=== PATIENT | female | born 1955 | race Caucasian/White ===

== ENCOUNTER 2024-06-27 19:31 | Inpatient (IN) | payer MEDICARE, SELFPAY ==
[2024-06-27] VITALS (14 sets, daily range): BP systolic 110–136; BP diastolic 43–89; PULSE 68–81; RESP 17–25; TEMP 36.1–36.7; O2SAT 82–96; BMI 24.3; BMI 26.1
--- NOTE | 2024-06-27 20:03 | EKG12_ITS ---
Test Reason : DYSRHYTHMIA Blood Pressure : / mmHG Vent. Rate : 077 BPM Atrial Rate : 077 BPM P-R Int : 134 ms QRS Dur : 094 ms QT Int : 414 ms P-R-T Axes : 051 055 006 degrees QTc Int : 468 ms Normal sinus rhythm Normal ECG Confirmed by Richard Valdes ([id number]), book editor NENA GILLIAM ([id number]) on 06/28/2024 8:20:07 AM Referred By: Confirmed By:Richard Valdes
--- NOTE | 2024-06-27 20:04 | ED.VIS.DYS ---
HPI History of Present Illness Chief Complaint: Shortness of Breath Informant: patient, spouse/S.O. and friend (neighbor) Narrative Narrative: 68-year-old female brought in by EMS because of worsening dyspnea and generalized weakness. This has been going on for at least 2 weeks. Lower extremity edema, lots of anxiety, and dyspnea with walking 3-5 feet to the point where she needs to rest and can only walk that far. She denies any exertional chest discomfort or syncope. Cough that is productive with just clear sputum no blood, maybe a little yellowish in the last day or 2, no fevers or chills that we know of the last time she had her temperature checked by her was yesterday. They states she has not wanted to lie flat in bed since she was discharged home from [facility] about 4 months ago. She was admitted for a month because of double pneumonia that she was diagnosed with after having had a stroke relatively recently that affected the left side, she was discharged home on oxygen and she uses 4-5 L at home all the time. She does not have a doctor. She has been trying to get 1, but the soonest she can get an appointment is 2 weeks from now, and the and neighbor are concerned because she is going downhill. [facility] Medical History (Updated 06/27/24 @ 23:[address] Emory Juarez MD) Hx of bacterial pneumonia Hx of arterial ischemic stroke Home Medications ?Medication ?Instructions ?Recorded ?Last Taken ?Type ascorbic acid (vitamin C) 500 mg 500 mg PO QDAY 06/27/24 Unknown History chewable tablet (Acerola C) aspirin 81 mg capsule 81 mg PO DAILY 06/27/24 Unknown History atorvastatin 80 mg tablet 80 mg PO DAILY 06/27/24 Unknown History cholecalciferol (vitamin D3) 25 1,000 unit PO DAILY 06/27/24 Unknown History mcg (1,000 unit) tablet (Vitamin D3) clopidogrel 75 mg tablet 75 mg PO DAILY 06/27/24 Unknown History ferrous sulfate 325 mg (65 mg 325 mg PO DAILY 06/27/24 Unknown History iron) tablet losartan 25 mg tablet 25 mg PO DAILY 06/27/24 Unknown History magnesium 200 mg tablet 200 mg PO DAILY 06/27/24 Unknown History melatonin 10 mg capsule 10 mg PO QHS 06/27/24 Unknown History Allergy/AdvReac Type Severity Reaction Status Date / Time saccharin (From [place]) Allergy Mild PT UNSURE Verified 06/27/24 19:31 OF REACTION Family History no significant family his Surgical History (Updated 06/27/24 @ 23:14 by Chelsey Mena) Hx of chest tube placement Surgical History no surgical history Social History Smoking Status: Current some day smoker tobacco type: cigarettes ROS ROS ED Constitutional Constitutional ED: Denies chills or fever(s) Eyes Eyes: Denies change in vision or diplopia ENT ENT ED: Denies rhinorrhea or sore throat Cardiovascular Cardiovascular: Reports leg edema; Denies chest pain or palpitations Respiratory/Chest Respiratory/Chest: Reports cough, dyspnea, dyspnea on exertion, sputum and other Details: Patient denies orthopnea saying she does not want to lay down because I do not like the mattress. Gastrointestinal Gastrointestinal: Reports constipation; Denies abdominal pain, diarrhea, nausea or vomiting Genitourinary Genitourinary ED: Denies dysuria or hematuria Musculoskeletal Musculoskeletal: Denies back pain or neck pain Integumentary Denies abscess or rash Neurologic Neurologic: Denies headache(s), paresthesias or weakness Psychiatric Psychiatric: Reports anxiety; Denies suicidal thoughts EXAM Physical Exam Const Vital Signs: 06/27/24 19:31 06/27/24 19:34 06/27/24 19:34 Temperature 97 F L 98.1 F Temperature Source Temporal Oral Pulse Rate 81 78 Respiratory Rate 25 H 20 H Respiratory Effort Respiratory Pattern Blood Pressure 125/43 H 126/47 H Blood Pressure Mean 70 73 Pulse Ox 82 92 94 Oxygen Delivery Method Room Air Nasal Cannula Room Air Oxygen Flow Rate (L/min) 5 5 06/27/24 19:43 06/27/24 20:14 06/27/24 20:28 Temperature Temperature Source Pulse Rate 78 Respiratory Rate 24 H Respiratory Effort Short of Breath Respiratory Pattern Tachypnea Blood Pressure Blood Pressure Mean Pulse Ox 95 Oxygen Delivery Method Nasal Cannula Nasal Cannula Oxygen Flow Rate (L/min) 5 5 06/27/24 20:34 06/27/24 21:00 06/27/24 21:46 Temperature 98.1 F 98.1 F 97.9 F Temperature Source Oral Oral Pulse Rate 76 79 68 Respiratory Rate 17 18 22 H Respiratory Effort Respiratory Pattern Blood Pressure 110/76 110/76 136/47 H Blood Pressure Mean 87 87 76 Pulse Ox 94 96 92 Oxygen Delivery Method Nasal Cannula Nasal Cannula Oxygen Flow Rate (L/min) 5 5 06/27/24 22:00 Temperature 97.6 F L Temperature Source Oral Pulse Rate 69 Respiratory Rate 18 Respiratory Effort Respiratory Pattern Blood Pressure 118/44 L Blood Pressure Mean 68 Pulse Ox 95 Oxygen Delivery Method Nasal Cannula Oxygen Flow Rate (L/min) 5 Positive well nourished and well developed General Appearance ED: well developed and NAD HEENT Reports moist mucous membranes normocephalic and atraumatic Eyes PERRL and EOMs intact bilaterally Neck full ROM and supple Resp Resp Narrative: Mildly tachypneic no respiratory distress able to converse. There are inspiratory rhonchi throughout the left side, they are not present on the right. Few bibasilar high-pitched rhonchi. Cardio regular rate and regular rhythm Cardio Narrative: Soft systolic 2/6 murmur LLSB GI non-tender and non-distended Auscultation: normoactive bowel sounds Palpation: soft Back/Spine no CVA tenderness General Back: other FROM Extremity normal to inspection General Extremety ED: Yes edema; Negative for pulses abnormal or tenderness General Extremity: edema bilateral lower extremity Details: moderate (Symmetric without calf tenderness or signs of cellulitis); Negative for pulses abnormal Neuro oriented x3, CN's II-XII intact bilaterally and no sensory deficits noted Sensorium / Orientation: awake and alert Motor Exam: general weakness Psych mental status grossly normal Skin no rashes or lesions noted and no wounds Sepsis Attestation Sepsis Alert: Yes Sepsis Attestation: Agree w/Sepsis Date exam was performed: 06/27/24 Time exam was performed: 21:00 Possible Source of Sepsis: Pulmonary Sepsis Organ Dysfunction Criteria Present: Lactic Acid > 2 mmol/L Supportive Findings: lethargy, SBP drop of approx 32 Fluid Resuscitation Fluid resuscitation indicated?: Yes Fluid Resuscitation ordered: Lesser volume fluid bolus ordered Amount of fluid ordered: 500 Reason for lesser fluid bolus:: Concern for fluid overload, Heart failure and BP Responded to a lesser volume Sepsis Note Date exam was performed: 06/27/24 Time exam was performed: 22:50 Sepsis Attestation: Sepsis re-evaluation was performed Response to fluids: Fluid responsive hypotension MDM MDM MDM Narrative Medical decision making narrative: Labs show critical hemoglobin of 4.9. She has had no bowel movements lately, family states she has been sitting around a lot, they are worried about a decubitus ulcer which I examined she does not have 1. Maybe a little bit of pressure but no sores or open areas. We did a Hemoccult, it is sent and pending, stool was not suspicious for this I can feel some hard stool at the tip of my finger, but there is yellow specimen without melena or blood. No tenderness or abscess. Her BUN is slightly elevated but I would expect it to be much higher if she had an acute upper GI bleed causing this. 1 view chest x-ray on my interpretation shows significant left-sided patchy infiltrates the right side looks clear. The family suggest that she had a chest tube while she was in [place] because of a parapneumonic effusion, I do not see a large effusion at this time. Antibiotics ordered. Her blood pressure has been trending down 125 systolic initially now in the 90s, prior to this I was hesitant to give her IV fluids even with a lactic acidosis because she has an elevated BNP and is edematous suggesting possibility of acute congestive heart failure. However given this I am giving her a fluid bolus. Discussed all this with the patient in addition to consenting her for a blood transfusion. She consents. Discussed with her and family. Discussed with hospitalist for admission. Requested CT chest/abd/pelvis, which was obtained. I reviewed the images as well as the radiology report which I agree with. It does show concern for metastatic disease in the chest as well as left greater than right pleural effusions, and no retroperitoneal hemorrhage. The Hemoccult returned negative. Lab Data Attestation: I reviewed the patient's lab results. Labs: Laboratory Results - last 24 hr 06/27/24 06/27/24 06/27/24 19:54 20:12 21:05 WBC 6.6 RBC 2.01 L Hgb 4.9 L* Hct 18.0 L MCV 89.6 MCH 24.4 L MCHC 27.2 L RDW Std Deviation 52.3 H RDW Coeff of Jose F 15.9 H Plt Count 183 MPV 11.4 Immature Gran % (Auto) 0.500 Neut % (Auto) 76.7 H Lymph % (Auto) 14.4 L [place] % (Auto) 7.3 Eos % (Auto) 0.6 Baso % (Auto) 0.5 Absolute Neuts (auto) 5.1 Absolute Lymphs (auto) 0.95 Nucleated RBC % 0 Diff Path Review May foll Platelet Estimate ADEQUATE RBC Morphology N CHROM Hypochromasia 1+ Anisocytosis RARE Macrocytosis RARE Ovalocytes RARE Sodium 140 Potassium 4.6 Chloride 102 Carbon Dioxide 27.0 Anion Gap 11 BUN 30 H Creatinine 1.04 H Estim Creat Clear Calc 40.18 Est GFR (MDRD) Af Amer 67 Est GFR (MDRD) Non-Af 56 L BUN/Creatinine Ratio 28.8 H Glucose 215 H Lactic Acid 7.2 H* Calcium 9.0 Troponin I High Sens 106 H B-Natriuretic Peptide 573.7 H Blood Type O POSITIVE Antibody Screen NEGATIVE Crossmatch See Detail Radiography Diagnostic Testing: Clinical Impression(s) from Imaging Studies Chest X-Ray 06/27/24 20:15 IMPRESSION: Diffuse density throughout the left lung with mild sparing of the apex. Findings consistent with atelectasis and/or infiltrate possibly with effusion. Recommend CT scan for better evaluation. Electronically Signed: Uziel Le MD at 21:19 EDT , Chest/Abdomen/Pelvis CT 06/27/24 21:45 IMPRESSION: 1. Exam limited by patient motion and the lack of IV and oral contrast. 2. Extensive abnormalities in the chest especially the left upper lobe where there is consolidation suggestive of atelectasis/infiltrate and likely neoplasm extending into the right mediastinum and hilum. Nodular densities throughout both lungs consistent with metastatic disease. 3. Small right pleural effusion. 4. Small to moderate left pleural effusion. 5. Diffuse calcified vascular disease. Electronically Signed: Uziel Le MD at 22:46 EDT , Rhythm Strip Rhythm Strip: Sinus Rhythm Rate: 80 Ectopy: None EKG Initial EKG: Attestation: I personally reviewed and interpreted this EKG as follows: Interpretation: Sinus Rhythm and No Acute Injury Pattern Management Discussion w/another healthcare provider: Hospitalist Critical Care Time Critical Care Time: Yes Critical care time (excluding procedures): 30-74 minutes (33 min), Including time spent:, Discussing w/Patient &/or Family/Room Worker, Discussing w/Consultants, Arranging Admission or Transfer and Performing Direct Patient Care at Bedside Discharge Plan Dx/Rx/DC Orders Clinical Impression: Hypoxemia, Anemia, Elevated troponin, Pneumonia, Edema, Lung mass, Pleural effusion Disposition Disposition: Acute Care Hospital [facility]
[2024-06-27 20:13] LABS: Absolute Lymphocyte Count 0.95 X10^3/uL (0.83-4.51); Absolute Neutrophil Count 5.1 X10^3/uL (2.0-7.7); Basophil# 0.03 X10^3/uL; Basophil% 0.5 % (0-1); Eosinophil# 0.04 X10^3/uL; Eosinophils% 0.6 % (0-5); Lymphocyte # 0.95 X10^3/ul (0.83-4.51); Lymphocyte % 14.4 % (19-41); Mean Corp Hgb Conc 27.2 g/dL (32-36); Mean Corpuscular Hgb 24.4 pg (27.0-32.0); Mean Corpuscular Volume 89.6 fL (81-99); Mean Platelet Vol. 11.4 fl (6.2-12.0); Monocyte# 0.48 X10^3/uL; Monocyte% 7.3 % (0-10); NRBC Flagged by Analyzer 0 % (0-5); Neutrophil # 5.07 X10^3/uL (2.7-7.7); Neutrophil % 76.7 % (47-70); POSITIVE COUNT YES; Platelet Count 183 K/mm3 (150-450); RBC Distribution Width CV 15.9 % (11.6-14.6); RBC Distribution Width SD 52.3 fl (35.1-43.9); Red Blood Count 2.01 M/mm3 (4.2-5.4); White Blood Count 6.6 K/mm3 (4.4-11.0)
--- NOTE | 2024-06-27 20:15 | RAD_ITS ---
STUDY: X-RAY CHEST REASON FOR EXAM: Female, 68 years old. sob TECHNIQUE: Single AP portable view of the chest. COMPARISON: None. FINDINGS: Normal lung volumes. Diffuse density throughout the left lung with mild sparing of the apex. Findings consistent with atelectasis and/or infiltrate possibly with effusion. Possible mild atelectasis or infiltrate in the right lung base. There is mild cardiac enlargement. Normal mediastinum and jovani. Normal visualized pulmonary arteries. There is atherosclerotic calcification of the aortic arch with tortuosity. Normal visualized thoracic spine. Normal visualized ribs, clavicles, and shoulders. There is no demonstrated abnormality of the visualized soft tissue structures of the upper abdomen. RAD/Chest 1 View (Portable) IMPRESSION: Diffuse density throughout the left lung with mild sparing of the apex. Findings consistent with atelectasis and/or infiltrate possibly with effusion. Recommend CT scan for better evaluation. Electronically Signed: Uziel Le MD at 21:19 EDT ,
[2024-06-27] MEDS: Ipratropium/Albuterol Sulfate 3 ML AMPUL.NEB INHALATION (20:28)
[2024-06-27 20:38] LABS: Anion Gap 11 (5-15); BUN 30 mg/dL (7-18); BUN/Creat Ratio 28.8 RATIO (10-20); Chloride 102 mmol/L (98-107); Creatinine, Serum 1.04 mg/dL (0.55-1.02); EST Glomerular Filtration Rate 56 mL/min (>60); Est Glom Filt Rate - Afr Amer 67 mL/min (>60); Estimated Creatinine Clearance 40.18 ml/min; Glucose 215 mg/dL (74-106); Hemoglobin 4.9 g/dL (12.0-15.0); Potassium 4.6 mmol/L (3.5-5.1); Sodium Level 140 mmol/L (136-145); Troponin-I HS 106 pg/mL (3.0-54.0)
[2024-06-27 20:39] LABS: Differential Indicated SCAN CRITERIA MET
[2024-06-27 20:41] LABS: Anisocytosis RARE; Hypochromasia 1+; Macrocytosis RARE; Ovalocyte RARE; Platelet Estimate ADEQUATE (ADEQ); Red Cell Morphology N CHROM NORMAL (NORM C&C)
[2024-06-27 20:53] LABS: BNP,B-Type NATRIURETIC PEPTIDE 573.7 pg/mL (0-100)
[2024-06-27 20:59] LABS: Lactic Acid 7.2 mmol/L (0.4-1.9)
--- NOTE | 2024-06-27 21:45 | HP.PCM.HOS_ITS ---
HPI - General General Date of Admission: 06/27/24 Date of Service: 06/27/24 Chief Complaint: SOB, Cough and LE Edema. HPI Narrative EILEEN TRAN, is a 68 F with a past medical history of essential hypertension, hyperlipidemia, history of tobacco abuse, history of CVA; with residual Left- sided weakness on BASA and Plavix, RUPAL, OA and history of bilateral pneumonia treated at [facility] (01/2024) with subsequent chronic hypoxic respiratory failure on 4-5L NC continuously patient stating she has been unable to lay flat since that time who presents to [facility] ER complaining of SOB, cough and lower extremity edema. Ms. Tran reports her symptoms began ~2 weeks prior to admission with the gradual-onset of JOHNSON that progressed to SOB at rest with patient now only able to walk ~3-5 feet before she has to rest due to severe exhaustion with 2-3+ bilateral LE edema. She also admits to an associated cough productive of clear sputum with constipation plus severe and escalating anxiety at her rapid downhill course. She does not have a PCP but has an appointment to see one in ~2 weeks. She denies fever, chills, nausea, vomiting, blood in stools, black stools, headache, paresthesias or focal neurologic weakness. In the ER she was noted to have Severe Left-sided Pneumonia complicated by clinical evidence of Moazv-ab-Dggisew Respiratory Insufficiency compounded by Severe Lactic Acidosis of 7.2 mmol/L present on admission with hypotension in the ~90 mmHg range consistent with suspected Sepsis in the setting of Critical Anemia with a hemoglobin of 4.9 g/dL present on admission with an elevated BNP of 573.7 pg/mL consistent with AE CHF with a mildly elevated troponin of 106 pg/mL suspected to be due to Acute Cardiac Strain and she was then admitted to the ICU for ongoing care for a stay that is expected to extend beyond 2 midnights. [facility] Medical History (Updated 06/28/24 @ 01:[address] Carlos Morton DO) Hx of bacterial pneumonia Hx of arterial ischemic stroke Home Medications ?Medication ?Instructions ?Recorded ?Last Taken ?Type ascorbic acid (vitamin C) 500 mg 500 mg PO QDAY 06/27/24 Unknown History chewable tablet (Acerola C) aspirin 81 mg capsule 81 mg PO DAILY 06/27/24 Unknown History atorvastatin 80 mg tablet 80 mg PO DAILY 06/27/24 Unknown History cholecalciferol (vitamin D3) 25 1,000 unit PO DAILY 06/27/24 Unknown History mcg (1,000 unit) tablet (Vitamin D3) clopidogrel 75 mg tablet 75 mg PO DAILY 06/27/24 Unknown History ferrous sulfate 325 mg (65 mg 325 mg PO DAILY 06/27/24 Unknown History iron) tablet losartan 25 mg tablet 25 mg PO DAILY 06/27/24 Unknown History magnesium 200 mg tablet 200 mg PO DAILY 06/27/24 Unknown History melatonin 10 mg capsule 10 mg PO QHS 06/27/24 Unknown History Allergy/AdvReac Type Severity Reaction Status Date / Time saccharin (From Sweeta) Allergy Mild PT UNSURE Verified 06/27/24 19:31 OF REACTION Family History no significant family his Surgical History (Updated 06/27/24 @ 23:14 by Chelsey Mena) Hx of chest tube placement Surgical History no surgical history Social History Smoking Status: Current some day smoker tobacco type: cigarettes ROS ROS Narrative Review of Systems: Constitutional: Patient denies fever or chills. Eyes: Patient denies visual changes or discharge from eyes. ENT: Patient denies runny nose, sore throat or ear pain. CV: Patient admits to bilateral LE edema but she denies chest pain, palpitations or heart racing. Resp: Patient admits to SOB and cough productive of initially clear and now yellowish sputum. GI: Patient admits to constipation but she denies abdominal pain, nausea, vomiting or diarrhea. : Patient denies dysuria, hematuria or urinary hesitancy. MSK: Patient denies neck pain or back pain. Skin: Patient denies rash, abscess or jaundice. Psych: Patient admits to heightened anxiety but she denies suicidal ideation. Neuro: Patient denies headache, paresthesias or focal neurologic deficits. Allergy: Patient denies lip swelling, tongue swelling or urticaria. Hematology: Patient denies easy bleeding or easy bruisability. Endocrinology: Patient denies polyuria, polydipsia or polyphagia. 14 point ROS otherwise negative except for positives noted above in HPI. Vital Signs Vital Signs Vital Signs: 06/27/24 19:31 06/27/24 19:34 06/27/24 19:34 Temperature 97 F L 98.1 F Temperature Source Temporal Oral Pulse Rate 81 78 Respiratory Rate 25 H 20 H Respiratory Effort Respiratory Pattern Blood Pressure 125/43 H 126/47 H Blood Pressure Mean 70 73 Pulse Ox 82 92 94 Oxygen Delivery Method Room Air Nasal Cannula Room Air Oxygen Flow Rate (L/min) 5 5 06/27/24 19:43 06/27/24 20:14 06/27/24 20:28 Temperature Temperature Source Pulse Rate 78 Respiratory Rate 24 H Respiratory Effort Short of Breath Respiratory Pattern Tachypnea Blood Pressure Blood Pressure Mean Pulse Ox 95 Oxygen Delivery Method Nasal Cannula Nasal Cannula Oxygen Flow Rate (L/min) 5 5 06/27/24 20:34 06/27/24 21:00 Temperature 98.1 F 98.1 F Temperature Source Oral Oral Pulse Rate 76 79 Respiratory Rate 17 18 Respiratory Effort Respiratory Pattern Blood Pressure 110/76 110/76 Blood Pressure Mean 87 87 Pulse Ox 94 96 Oxygen Delivery Method Nasal Cannula Nasal Cannula Oxygen Flow Rate (L/min) 5 5 Weight Weight: 124 lb 5.451 oz Body Mass Index (BMI) 24.3 Physical Exam Const alert and oriented x3 Constitutional Narrative: Moderate distress noted with patient chronically ill appearing. General Appearance: cooperative HEENT normocephalic, head/scalp atraumatic, hearing grossly normal bilaterally and moist oral mucous membranes Eyes PERRL and EOMs intact bilaterally Neck no lymphadenopathy and supple Resp Resp Narrative: Coarse inspiratory rhonci over entire Left lung. Auscultation: rhonchi Cardio regular rate and regular rhythm Cardio Narrative: Grade 2/6 STEPHENIE @ LSB. GI normal to inspection, nondistended, normoactive bowel sounds, soft to palpation, non-tender and non-distended Extremity Extremity Narrative: 2-3+ bilateral LE edema. Skin Skin Narrative: Patient has no evidence of rash, abscess or jaundice. Neuro oriented x3, CN's II-XII intact bilaterally, moves all extremities and no focal motor deficits Sensorium / Orientation: awake, alert, oriented to person, oriented to place and oriented to time Speech: speech normal Psych Mood & Affect: anxious Results Medical Records Data Attestation: I reviewed the patient's medical records Lab / Micro Data Attestation: I reviewed the patient's lab results. 06/28/24 04:50 06/28/24 04:50 Labs: Laboratory Results - last 24 hr 06/27/24 19:54: WBC 6.6, RBC 2.01 L, Hgb 4.9 L*, Hct 18.0 L, MCV 89.6, MCH 24.4 L, MCHC 27.2 L, RDW Std Deviation 52.3 H, RDW Coeff of Jose F 15.9 H, Plt Count 183, MPV 11.4, Immature Gran % (Auto) 0.500, Neut % (Auto) 76.7 H, Lymph % (Auto) 14.4 L, Swisher % (Auto) 7.3, Eos % (Auto) 0.6, Baso % (Auto) 0.5, Absolute Neuts (auto) 5.1, Absolute Lymphs (auto) 0.95, Nucleated RBC % 0, Diff Path Review February, Platelet Estimate ADEQUATE, RBC Morphology N CHROM, Hypochromasia 1+, Anisocytosis RARE, Macrocytosis RARE, Ovalocytes RARE, Sodium 140, Potassium 4.6, Chloride 102, Carbon Dioxide 27.0, Anion Gap 11, BUN 30 H, C reatinine 1.04 H, Estim Creat Clear Calc 40.18, Est GFR (MDRD) Af Amer 67, Est GFR (MDRD) Non-Af 56 L, BUN/Creatinine Ratio 28.8 H, Glucose 215 H, Calcium 9.0, Troponin I High Sens 106 H, B-Natriuretic Peptide 573.7 H 06/27/24 20:12: Lactic Acid 7.2 H* 06/27/24 21:05: Crossmatch See Detail Micro: Microbiology 06/27/24 20:18 Mucosa - Nose SARS-CoV-2, Influenza & RSV (PCR) - Final Imaging Radiology Impression Chest X-Ray 06/27/24 20:15 IMPRESSION: Diffuse density throughout the left lung with mild sparing of the apex. Findings consistent with atelectasis and/or infiltrate possibly with effusion. Recommend CT scan for better evaluation. Electronically Signed: Uziel Le MD at 21:19 EDT , - [facility] Imaging Services [address] [place] [address] CT Chest, Abd, Pelvis WO Cont MR#: [id number] Acct: [id number] Name: EILEEN TRAN V Rep #: [id number] : [id number] F 68 From: Uziel Le MD PCP: Care Physician,No Primary Status: REG ER Study: CT Chest, Abd, Pelvis WO Cont Date of Exam: 06/27/24 Exam# [id number] Ordering Dr: Emory Juarez MD EXAM: CT CHEST, ABDOMEN AND PELVIS WITHOUT INTRAVENOUS CONTRAST CLINICAL INDICATION: LETHARGY TECHNIQUE: Helically acquired images were obtained of the chest, abdomen and pelvis without intravenous contrast. This CT exam was performed using one or more of the following dose reduction techniques: automated exposure control, adjustment of the mA and/or kV according to patient size, and/or use of iterative reconstruction technique. RADIATION DOSE: CTDIvol = 9.27 mGy, DLP = 811.02 mGy-cm COMPARISON: No relevant prior studies available. FINDINGS: CHEST: LUNGS AND PLEURAL SPACES: Near complete consolidation of left upper lobe consistent with probable combination of atelectasis/infiltrate and likely neoplasm. Soft tissue density extends to the right hilum with narrowing of the airways. This could be mass or adenopathy. Widespread scattered pulmonary nodules in the posterior right lower lobe, middle lobe, throughout the right lung base, and especially in the lingula and left lower lobe consistent with neoplastic disease. Bronchoscopy and biopsy is recommended. Small right pleural effusion. Small to moderate left pleural effusion. No pneumothorax. HEART: Moderate cardiomegaly. Decreased density of the blood within the cardiac chambers consistent with anemia. Heavily calcified coronary arteries. No pericardial effusion. MEDIASTINUM: Cannot exclude adenopathy on this noncontrast exam. All Esophagus is unremarkable. No hiatal hernia. THYROID: Unremarkable. No thyroid lesions. ABDOMEN: LIVER: Unremarkable. Homogeneous. GALLBLADDER AND BILE DUCTS: Unremarkable. No calcified gallstones. No gallbladder distention or wall edema. No intra- or extrahepatic biliary ductal dilation. PANCREAS: Unremarkable. No focal cystic mass. SPLEEN: Unremarkable. Normal size without focal cystic or solid mass. ADRENALS: Unremarkable. No nodules. KIDNEYS AND URETERS: Severe atrophy of the left kidney. Compensatory hypertrophy of the right kidney. Bilateral renal artery calcifications. No hydronephrosis. STOMACH AND BOWEL: Evaluation of the GI tract is limited by absence of oral contrast. Cannot exclude stomach wall thickening. No dilated loops of bowel or evidence for obstruction. Cannot exclude segmental thickening of the nolasco of the small or large bowel. Cannot exclude enteritis or colitis. Marked diffuse fecal retention. Appendix within normal limits. PELVIS: APPENDIX: No evidence of acute appendicitis. BLADDER: Unremarkable. REPRODUCTIVE: Atrophic uterus. CHEST, ABDOMEN and PELVIS: INTRAPERITONEAL SPACE: Unremarkable. No ascites or other fluid collection. No free air. BONES/JOINTS: Degenerative changes of the skeletal structures. No suspicious lytic or blastic abnormality. SOFT TISSUES: Unremarkable. No discrete abdominal or pelvic wall hernia. VASCULATURE: Heavily calcified thoracic aorta with no aneurysm. Heavily calcified abdominal aorta with no aneurysm. A few calcified peripheral vascular disease CT/CT Chest, Abd, Pelvis WO Cont IMPRESSION: 1. Exam limited by patient motion and the lack of IV and oral contrast. 2. Extensive abnormalities in the chest especially the left upper lobe where there is consolidation suggestive of atelectasis/infiltrate and likely neoplasm extending into the right mediastinum and hilum. Nodular densities throughout both lungs consistent with metastatic disease. 3. Small right pleural effusion. 4. Small to moderate left pleural effusion. 5. Diffuse calcified vascular disease. Electronically Signed: Uziel Le MD at 22:46 EDT , CC: Dr. 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: Signed Assessment & Plan Assessment/Plan (1) Pneumonia: QUALIFIERS: Laterality: left Lung location: unspecified part of lung Pneumonia type: due to unspecified organism Qualified Code(s): J18.9 - Pneumonia, unspecified organism (2) Sepsis: QUALIFIERS: Acute respiratory failure type: unspecified Sepsis acute organ dysfunction status: with acute organ dysfunction Sepsis type: s epsis due to unspecified organism Severe sepsis acute organ dysfunction type: a cute respiratory failure Severe sepsis shock status: without septic shock Q ualified Code(s): A41.9 - Sepsis, unspecified organism; R65.20 - Severe sepsis without septic shock; J96.00 - Acute respiratory failure, unspecified whether with hypoxia or hypercapnia (3) Lactic acidosis: (4) Lung cancer: QUALIFIERS: Laterality: left Lung location: unspecified part of lung Qualified Code(s): C34.92 - Malignant neoplasm of unspecified part of left bronchus or lung (5) Respiratory insufficiency: (6) Edema: QUALIFIERS: Edema type: unspecified Qualified Code(s): R60.9 - Edema, unspecified (7) Anemia: QUALIFIERS: Anemia type: unspecified type Qualified Code(s): D 64.9 - Anemia, unspecified PLAN: Plan 1. Severe Left-sided Pneumonia with Hypotension and Lactic Acidosis of 7.2 mmol/L present on admission due to suspected Sepsis with CT evidence of newly diagnosed Metastatic Lung Cancer - Admit to ICU. Continue broad-spectrum antibiotics and await culture and sensitivity data. Give Tylenol prn [id number] (level 1-5/10) pain or fever. Give Morphine IV prn for severe (level 6-10/10) pain. Check STAT ABG to establish baseline. Check urinary antigens for Legionella and S. pneumonia. Second lactate down to 4.4 mmol/L after initial round of treatment. Give duo-nebs q. 4 hours prn. Patient and her were informed about her malignancy and likely poor prognosis. Finally, we will consult Dr. Gonzalez of the pulmonary service to see this patient on-rounds in the AM for further recommendations regarding possible biopsy with help appreciated in advance. 2. Critical Anemia with a hemoglobin of 4.9 g/dL present on admission in the setting of known chronic RUPAL complicating #1 - Type & Screen blood and then transfuse 2 units or PRBC's. Recheck CBC in AM to ensure improvement. Check iron studies, ferritin, B12 and Folate to evaluate for potential reversible causes of anemia. 3. Elevated BNP of 573.7 pg/mL consistent with AE CHF with a mildly elevated troponin of 106 pg/mL suspected to be due to Acute Cardiac Strain and bilateral LE edema arising from #1 & #2 - Serialize troponin. Check echocardiogram to evaluate LVEF. Patient has suspected high-output state from critical anemia that will hopefully improve after blood transfusion. 4. Bwwzo-zj-Btqgzft Respiratory Insufficiency due to #1 - #3 - Wean supplemental oxygen as tolerated. 5. History of bilateral pneumonia treated at [facility] (01/2024) with subsequent chronic hypoxic respiratory failure on 4-5L NC continuously patient stating she has been unable to lay flat since that time adding to the complexity of #1 - #4 - Noted. We will request records from that hospital as this is her first admission here with no previous records available. 6. History of CVA; with residual Left-sided weakness on BASA and Plavix - Noted. Hold BASA and Plavix until potential source of blood loss has been identified. 7. Essential hypertension - Hold scheduled antihypertensives until blood volume has been replaced with symptomatic hypotension in the ~90 mmHg systolic range noted in the ER. 8. Hyperlipidemia - Resume statin and check Lipid Profile in light of #3. 9. History of tobacco abuse - Tobacco cessation will be strongly encouraged with Nicotine patch offered to control cravings. 10. OA - Stable. Give Tylenol prn. 11. DVT prophylaxis - SCD's only with critical anemia present on admission. Total time: Approximately 75 minutes. Update: Patient continued to complain of severe anxiety even after she was treated with Ativan in the ER so Precedex drip was ordered in the ICU to help control her restlessness and agitation. Sepsis Attestation Sepsis Alert: Yes Sepsis Attestation: Sepsis Ruled Out Date exam was performed: 06/27/24 Time exam was performed: 22:40 Possible Source of Sepsis: Pulmonary Sepsis Organ Dysfunction Criteria Present: SBP < 90 mmHg or MAP < 65 mmHg, SBP decrease of more than 40 mmHg and Lactic Acid > 2 mmol/L Fluid Resuscitation Fluid resuscitation indicated?: Yes Fluid Resuscitation ordered: 30 ml/kg fluid bolus ordered Amount of fluid ordered: 2 Sepsis Note Date exam was performed: 06/28/24 Time exam was performed: 02:40 Sepsis Attestation: Sepsis re-evaluation was performed Response to fluids: Fluid responsive hypotension Charges/Coding Visit Charges Inpatient E&M: 46139 Init Hosp L3
[2024-06-27] MEDS: Piperacil/Tazobactam 4.5 GM in 0.9% Normal Saline (100mL MB+) 100 ML IV (21:48)
[2024-06-27] MEDS: 0.9% Normal Saline (500mL Bag) 500 ML 999 ML IV (22:21)
[2024-06-27 22:52] LABS: Allen Test Positive; Base Excess 6 mmol/L (-2 to +2); Bicarbonate 31.2 mmol/L (22-26); Blood Gas Specimen Type ART; Mode Not entered; O2 Delivery Device Cannula; PO2 56 mmHG (75-100); SITE R Radial; SO2 88 % (95-99); Total Carbon Dioxide 33 mmol/L; pCO2 51.6 mmHg (35-45); pH 7.39 (7.35-7.45)
[2024-06-27] MEDS: Azithromycin 500 MG in Dextrose 5%-Water (250mL Bag) 250 ML 250 MG IV (22:53)
[2024-06-27 23:20] LABS: Ferritin 13 ng/mL (8-252); Iron 9 ug/dL (50-170); Iron Binding Capacity,Total 343 ug/dL (250-450); PERCENT IRON SATURATION 2.6 % (15.0-55.0)
[2024-06-27] MEDS: LORazepam 2 MG/ML Syringe 0.5 MG IV (23:25)
[2024-06-27] MEDS: Albuterol 2.5 MG/3 ML VIAL.NEB. INHALATION (23:25)
[2024-06-28] VITALS (37 sets, daily range): BP systolic 95–146; BP diastolic 38–98; PULSE 57–89; RESP 16–27; TEMP 35.9–36.8; O2SAT 61–100; BMI 26.1
[2024-06-28 00:17] LABS: Reflex Lactate? Y
[2024-06-28] MEDS: Vancomycin HCl 1,500 MG in 0.9% Normal Saline (500mL Bag) 500 ML 250 MG IV (00:43)
[2024-06-28] MEDS: 0.9% Normal Saline (1000mL) 1,000 ML 70 ML IV (00:43)
[2024-06-28 01:01] LABS: Lactic Acid 4.4 mmol/L (0.4-1.9)
--- NOTE | 2024-06-28 01:01 | PCM.RX.CS ---
Consult Antibiotic Management Pharmacy has been consulted to manage selected antibiotic: Vancomycin Type of Intervention Type of Consult: New start Suspected Infection Suspected Infection: Sepsis and Pneumonia Labs Labs: Sodium 140 mmol/L (136-145) 06/27/24 19:54 Potassium 4.6 mmol/L (3.5-5.1) 06/27/24 19:54 Chloride 102 mmol/L (98-107) 06/27/24 19:54 Carbon Dioxide 27.0 mmol/L (21.0-32.0) 06/27/24 19:54 Anion Gap 11 (5-15) 06/27/24 19:54 BUN 30 mg/dL (7-18) H 06/27/24 19:54 Creatinine 1.04 mg/dL (0.55-1.02) H 06/27/24 19:54 Est GFR (MDRD) Af Amer 67 mL/min (>60) 06/27/24 19:54 Est GFR (MDRD) Non-Af 56 mL/min (>60) L 06/27/24 19:54 BUN/Creatinine Ratio 28.8 RATIO (10-20) H 06/27/24 19:54 Glucose 215 mg/dL (74-106) H 06/27/24 19:54 Microbiology Microbiology: Microbiology 06/27/24 21:50 Stool Stool Occult Blood (EMNDEZ) - Final 06/27/24 20:18 Mucosa - Nose SARS-CoV-2, Influenza & RSV (PCR) - Final Dosing Weight Weight used for dosin.4 kg Estimated Creatinine Clearance Estimated Creatinine Clearance: 40 Goal Trough Goal Trough: 15-20 mcg/mL Pharmacy Plan for Drug Dosing Pharmacy Plan for Drug Dosing: Pharmacy Service will continue to monitor and adjust dosing as required. Follow-Up Labs Follow-Up Labs: Trough: Vancomycin Date/Time Labs Ordered Labs to be done on [date and time ordered]: 06/29/24 @1200
[2024-06-28] MEDS: Ipratropium/Albuterol Sulfate 3 ML AMPUL.NEB INHALATION ×5 (02:17→18:46)
[2024-06-28 02:18] LABS: Troponin-I HS 118 pg/mL (3.0-54.0)
[2024-06-28] MEDS: dexMEDEtomidine 400 MCG in 0.9% Normal Saline (100mL Bag) 96 ML 7.6 MCG CONT INF (02:19)
[2024-06-28 02:22] LABS: Vitamin B12 443 pg/mL (211-911)
[2024-06-28 02:56] LABS: D-Dimer Quantitative (DVT/PE) 1.84 FEU/ug/m (0.27-0.49)
[2024-06-28] MEDS: 0.9% Saline Lock 10 ML Syringe IV ×2 (03:32→13:25)
[2024-06-28 03:49] LABS: Reflex Lactate? Y
[2024-06-28 04:25] LABS: Troponin-I HS 112 pg/mL (3.0-54.0)
[2024-06-28 05:11] LABS: Absolute Lymphocyte Count 0.48 X10^3/uL (0.83-4.51); Basophil# 0.01 X10^3/uL; Basophil% 0.2 % (0-1); Hematocrit 19.7 % (37-47); Lymphocyte # 0.48 X10^3/ul (0.83-4.51); Lymphocyte % 8.3 % (19-41); Mean Corp Hgb Conc 28.9 g/dL (32-36); Mean Corpuscular Hgb 25.4 pg (27.0-32.0); Mean Corpuscular Volume 87.9 fL (81-99); Mean Platelet Vol. 12.1 fl (6.2-12.0); Monocyte# 0.31 X10^3/uL; Monocyte% 5.4 % (0-10); NRBC Flagged by Analyzer 0 % (0-5); Neutrophil # 4.96 X10^3/uL (2.7-7.7); Neutrophil % 85.6 % (47-70); POSITIVE COUNT YES; POSITIVE DIFFERENTIAL YES; Platelet Count 145 K/mm3 (150-450); RBC Distribution Width CV 15.7 % (11.6-14.6); RBC Distribution Width SD 50.5 fl (35.1-43.9); Red Blood Count 2.24 M/mm3 (4.2-5.4); White Blood Count 5.8 K/mm3 (4.4-11.0)
[2024-06-28 05:22] LABS: Hemoglobin 5.7 g/dL (12.0-15.0)
[2024-06-28 05:23] LABS: Differential Indicated SCAN CRITERIA MET
[2024-06-28 05:48] LABS: ALB/GLOB Ratio 1.1 RATIO (0.9-2.4); AST(SGOT) 22 U/L (15-37); Alanine Aminotransfer ALT/SGPT 10 U/L (13-56); Albumin, Serum 2.9 g/dL (3.2-5.0); Alkaline Phosphatase 45 U/L (45-117); Anion Gap 7 (5-15); BUN 32 mg/dL (7-18); BUN/Creat Ratio 33.6 RATIO (10-20); Calcium,Total 8.2 mg/dL (8.5-10.1); Chloride 105 mmol/L (98-107); Creatinine, Serum 0.95 mg/dL (0.55-1.02); EST Glomerular Filtration Rate 62 mL/min (>60); Est Glom Filt Rate - Afr Amer 75 mL/min (>60); Estimated Creatinine Clearance 45.47 ml/min; Globulin 2.6 g/dL (2.2-4.2); Glucose 162 mg/dL (74-106); Phosphorus 4.2 mg/dL (2.5-4.9); Potassium 4.2 mmol/L (3.5-5.1); Protein, Total 5.5 g/dL (6.4-8.2); Sodium Level 141 mmol/L (136-145)
--- NOTE | 2024-06-28 05:55 | RAD_ITS ---
INDICATION: Left PNA. EXAMINATION/TECHNIQUE: X-RAY - XR Chest 1 View COMPARISON: June 27, 2024. FINDINGS: LINES/DEVICES: None. LUNGS: Mild unchanged left lung volume loss. Persistent large consolidation in the left lateral upper lung and left lower lung. Mild hyperexpansion of the right lung. Small left effusion. No pneumothorax. MEDIASTINUM AND CARDIOVASCULAR STRUCTURES: Cardiac silhouette not enlarged. BONES AND SOFT TISSUES: Unremarkable. RAD/Chest 1 View (Portable) IMPRESSION: Mixed atelectasis and consolidative pneumonia in the left lung with small effusion. CT follow-up recommended after treatment to exclude obstructing hilar lesion.. Electronically Signed: Salvatore Almeida MD at 6:33 EDT ,
[2024-06-28 05:57] LABS: Lactic Acid 2.5 mmol/L (0.4-1.9)
[2024-06-28 06:05] LABS: BNP,B-Type NATRIURETIC PEPTIDE 823.5 pg/mL (0-100)
[2024-06-28] MEDS: Piperacil/Tazobactam 3.375 GM in 0.9% Normal Saline (50mL MB+) 50 ML IV ×3 (06:15→21:42)
--- NOTE | 2024-06-28 06:54 | VDLE_ITS ---
Reason For Study: Elevated D Dimer RIGHT LEFT GSV is normal. GSV is normal. CFV is compressible, spontaneous, competent CFV is compressible, spontaneous, competent, and demonstrates pulsatile venous flow. and demonstrates pulsatile venous flow. FV is compressible, spontaneous, competent FV is compressible, spontaneous, competent and demonstrates pulsatile venous flow. and demonstrates pulsatile venous flow. POP V is compressible, spontaneous, competent POP V is compressible, spontaneous, and demonstrates pulsatile venous flow. competent and demonstrates pulsatile venous T/P Trunk is compressible. flow. PTV is compressible. T/P Trunk is compressible. RT PerV is compressible. PTV is compressible. Acute deep vein thrombosis is noted in the LT PerV is compressible. Gastrocnemius V. It is dilated and NONCOMPRESSIBLE. Procedure This is a venous duplex using B-mode, color flow and spectral Doppler. Exam performed in department. The study was technically difficult. A preliminary report was called and/or faxed to [facility] sap data architect. VL/Venous Duplex US - Christian Extrem Interpretation Summary Acute deep vein thrombosis is noted in the right gastrocnemius vein. Deep veins of the left lower extremity are patent and compressible segmentally. There is no evidence of left lower extremity deep vein thrombosis. Ordering Physician: Carlos Morton Referring Physician: N/A Performed By: Godwin Strong RVT
--- NOTE | 2024-06-28 06:54 | CT_ITS ---
STUDY: CTA CHEST REASON FOR EXAM: Female, 68 years old. Elevated d-dimer with Lung CA. RADIATION DOSAGE (If Supplied By Facility): CTDIvol = ( 13.66 ) mGy, DLP = ( 434.29 ) mGycm TECHNIQUE: The examination was performed with the intravenous administration of IV 75mL [id number]-[id number]. Post-processing of the angiographic images was performed, with multiplanar reformation and 3D reconstruction. Individualized dose optimization techniques were used for this CT. COMPARISON: Comparison is made with prior study dated June 27, 2024. FINDINGS: Normal enhancement of the main pulmonary artery and right and left pulmonary arteries. Normal enhancement of the bilateral peripheral pulmonary arteries. There is no demonstrated pulmonary embolism. There is atherosclerotic calcification of the aortic arch with tortuosity. There is no demonstrated aortic dissection. There are calcifications of the coronary arteries. Cardiomegaly. Normal mediastinum. Normal hilar regions. Normal visualized trachea and bronchi. Bilateral pleural effusions left much greater than right. There is collapse of the left upper lobe with mass in the region of the left hilum suggestive of postobstructive pneumonitis. Patchy infiltrates and/or irregular nodular densities are seen in the left lower lobe. Pulmonary nodules are seen in the right lung as well. Normal chest wall structures. There are degenerative changes of thoracic spine. Left renal atrophy. CT/CTA Chest W/WO Contrast IMPRESSION: Bilateral pleural effusions left greater than right with collapse of the left upper lobe. Soft tissue mass in the perihilar region on the left side. Bilateral pulmonary nodules. Patchy irregular nodular densities in the left lower lobe versus partial infiltrations. No evidence of pulmonary embolism. Electronically Signed: Eron Abbasi MD at 12:49 EDT ,
--- NOTE | 2024-06-28 07:02 | EX.PCM.CONCC ---
Assessment & Plan Assessment/Plan (1) Sepsis: QUALIFIERS: Sepsis type: sepsis due to unspecified organism Sepsis acute organ dysfunction status: with acute organ dysfunction Severe sepsis acute organ dysfunction type: acute respiratory failure Acute respiratory failure type: unspecified Severe sepsis shock status: without septic shock Qualified Code(s): A41.9 - Sepsis, unspecified organism; R65.20 - Severe sepsis without septic shock; J96.00 - Acute respiratory failure, unspecified whether with hypoxia or hypercapnia (2) Anemia: QUALIFIERS: Anemia type: unspecified type Qualified Code(s): D64.9 - Anemia, unspecified (3) Elevated troponin: PLAN: Plan RECOMMENDATIONS: 1. Supplemental oxygen to maintain saturations at or above 90%. 2. Advance to BiPAP therapy, if needed. 3. Stop continuous IV fluids and administer Lasix. 4. Obtain echocardiogram. 5. Transfuse blood products as ordered. Check H&H posttransfusion. 6. Gastroenterology consultation is pending. 7. Continue empiric antimicrobials. 8. Continue bronchodilator therapy. 9. Start PPI therapy. IMPRESSIONS: 1. Acute on chronic hypoxemic respiratory failure The patient has a presumptive history of COPD in the setting of extensive tobacco abuse history, but has never been evaluated by a industrial gas servicer helper or had PFTs completed. The patient has radiographic evidence of possible postobstructive pneumonia with concern for underlying malignancy with mediastinal infiltration leading to airway narrowing. This will ultimately require additional outpatient workup once all of her acute issues are addressed. Ultimately, the patient will require bronchoscopy/EBUS, which again, can be coordinated on an outpatient basis. For now, I would plan to continue the patient on empiric antimicrobials along with bronchodilators as ordered. I have stopped her continuous IV fluids. She has an elevated troponin and BNP along with heavily calcified coronary vessels noted on CT imaging. Therefore, will obtain echocardiogram. IV Lasix has already been administered. It should be noted that although there is documentation that the patient has a history of lung cancer, she has never been formally diagnosed with any type of malignancy. She was previously told that she had lung nodules, but these lesions have never been biopsied. 2. Sepsis The patient presented with sepsis due to probable postobstructive pneumonia with acute sepsis related organ dysfunction as evidenced by lactic acidemia. The patient has been initiated on appropriate antimicrobial therapy. I would avoid additional IV fluids at this time given the patient's tenuous respiratory status. 3. Anemia The patient presented to the hospital with a hemoglobin of 4.9 g/dL. We do not have any prior laboratory values in our system for comparison. Therefore, the chronicity of this finding is not clear. Nevertheless, the patient is currently receiving transfusion of blood products. Recommend continuing as ordered, with plans to check H&H posttransfusion. Gastroenterology consultation is pending. The patient has been initiated on PPI therapy. 4. Troponin elevation Likely secondary to demand ischemia in the setting of the above. However, given the findings noted on CT imaging with heavily calcified coronary vessels along with elevated BNP and troponin, will obtain echocardiogram. 5. History of CVA/history of tobacco dependency in remission/generalized anxiety disorder Complicates care, management, recovery and prognosis. Given the patient's significant anxiety and current n.p.o. status, will plan to continue Precedex for now. Ultimately, she will need to be started on a long-acting anxiolytic once she is able to tolerate p.o. intake. CODE status: Discussed CODE status at length including difference between FULL code, DNR-CCA and DNR-CC status. Following discussions about the differences in these status, patient requested FULL CODE STATUS. Advanced Care Planning Face to Face Time: 19 minutes This note was generated with [employer] dictation software. It may contain incorrect words, spelling, and punctuation that were not noted in checking the note before signing. HPI Consult Data Date of Consult: 06/28/24 HPI Narrative Reason for Consultation: Sepsis HPI Narrative: The patient is a 68-year-old female, with a history as outlined below, who presented to the emergency department on June 27 with generalized weakness and shortness of breath. The patient is a relatively poor historian, but indicated that she was admitted to [facility] in December/January with respiratory failure related to pneumonia. She was also told at that time that she had pulmonary nodules that were concerning. According to the patient, she was discharged home on 6 L/min of oxygen. She has an extensive tobacco abuse history, but stated that she quit smoking at the time of her hospitalization in December. She does not currently have a primary care doctor, nor has she ever been evaluated by a industrial gas servicer helper. She does report a prior history of CVA, hypertension and hyperlipidemia. She also reports a great deal of baseline anxiety. On presentation to the emergency department, the patient was documented to be afebrile hemodynamically stable. Laboratory evaluation revealed a normal white blood cell count. However, the patient had a presenting hemoglobin of 4.9 g/dL with a normal platelet count. ABG was notable for a pH of 7.39 with a pCO2 of 51 and pO2 of 56. Chemistry profile was notable for a creatinine of 1.04. Lactate was elevated at 7.2. Troponin was increased at 106 with a BNP of 573. CT chest/abdomen/pelvis demonstrated left upper lobe infiltrate and atelectasis. There is a soft tissue density in the right hilum leading to compression of the adjacent airways. Widespread bilateral pulmonary nodules were also noted. COVID, influenza and RSV PCR's were negative. Blood cultures were collected. The patient was initiated on antimicrobials and bronchodilators. She was ordered to be transfused blood products. The patient was subsequently admitted to the medical intensive care unit for further management. At the present time, gastroenterology consultation is pending. [facility] Medical History (Updated 06/28/24 @ 06:[address] Carlos Morton, ) Hx of bacterial pneumonia Hx of arterial ischemic stroke Home Medications ?Medication ?Instructions ?Recorded ?Last Taken ?Type ascorbic acid (vitamin C) 500 mg 500 mg PO QDAY 06/27/24 Unknown History chewable tablet (Acerola C) aspirin 81 mg capsule 81 mg PO DAILY 06/27/24 Unknown History atorvastatin 80 mg tablet 80 mg PO DAILY 06/27/24 Unknown History cholecalciferol (vitamin D3) 25 1,000 unit PO DAILY 06/27/24 Unknown History mcg (1,000 unit) tablet (Vitamin D3) clopidogrel 75 mg tablet 75 mg PO DAILY 06/27/24 Unknown History ferrous sulfate 325 mg (65 mg 325 mg PO DAILY 06/27/24 Unknown History iron) tablet losartan 25 mg tablet 25 mg PO DAILY 06/27/24 Unknown History magnesium 200 mg tablet 200 mg PO DAILY 06/27/24 Unknown History melatonin 10 mg capsule 10 mg PO QHS 06/27/24 Unknown History Allergy/AdvReac Type Severity Reaction Status Date / Time saccharin (From Sweeta) Allergy Mild PT UNSURE Verified 06/27/24 19:31 OF REACTION Family History no significant family his Surgical History (Updated 06/27/24 @ 23:14 by Chelsey Mnea) Hx of chest tube placement Surgical History no surgical history Social History Smoking Status: Current some day smoker tobacco type: cigarettes ROS ROS Narrative 10 systems reviewed with pertinent positives as noted in the HPI above. Physical Exam Const alert and oriented x3 Constitutional Narrative: Currently receiving an aerosol treatment. General Appearance: cooperative and ill appearing HEENT normocephalic and head/scalp atraumatic Eyes PERRL, EOMs intact bilaterally and conjunctivae normal Neck supple General: trachea midline Chest inspection of chest normal Resp Effort and Inspection: tachypneic Auscultation: rales and diminished lung sounds Cardio regular rate and regular rhythm GI normal to inspection, nondistended, normoactive bowel sounds Extremity no clubbing, cyanosis or edema Skin no rashes or lesions noted Neuro CN's II-XII intact bilaterally, moves all extremities and no focal motor deficits Psych Activity / Motor Behavior: restless Mood & Affect: anxious Lab / Micro Data 06/28/24 04:50 06/28/24 04:50 Labs: Laboratory Results - last 24 hr 06/27/24 19:54: WBC 6.6, RBC 2.01 L, Hgb 4.9 L*, Hct 18.0 L, MCV 89.6, MCH 24.4 L, MCHC 27.2 L, RDW Std Deviation 52.3 H, RDW Coeff of Jose F 15.9 H, Plt Count 183, MPV 11.4, Immature Gran % (Auto) 0.500, Neut % (Auto) 76.7 H, Lymph % (Auto) 14.4 L, [place] % (Auto) 7.3, Eos % (Auto) 0.6, Baso % (Auto) 0.5, Absolute Neuts (auto) 5.1, Absolute Lymphs (auto) 0.95, Nucleated RBC % 0, Diff Path Review May foll, Platelet Estimate ADEQUATE, RBC Morphology N CHROM, Hypochromasia 1+, Anisocytosis RARE, Macrocytosis RARE, Ovalocytes RARE, Sodium 140, Potassium 4.6, Chloride 102, Carbon Dioxide 27.0, Anion Gap 11, BUN 30 H, Creatinine 1.04 H, Estim Creat Clear Calc 40.18, Est GFR (MDRD) Af Amer 67, Est GFR (MDRD) Non-Af 56 L, BUN/Creatinine Ratio 28.8 H, Glucose 215 H, Calcium 9.0, Iron 9 L, TIBC 343, Iron Saturation 2.6 L, Ferritin 13, Troponin I High Sens 106 H, B-Natriuretic Peptide 573.7 H, Folate 7.70 06/27/24 20:12: Lactic Acid 7.2 H* 06/27/24 21:05: Blood Type O POSITIVE, Antibody Screen NEGATIVE, Crossmatch See Detail 06/27/24 23:49: Lactic Acid 4.4 H* 06/28/24 01:35: Troponin I High Sens 118 H, Vitamin B12 443 06/28/24 02:20: D-Dimer Quant (PE/DVT) 1.84 H* 06/28/24 03:45: Troponin I High Sens 112 H 06/28/24 04:50: WBC 5.8, RBC 2.24 L, Hgb 5.7 L*, Hct 19.7 L, MCV 87.9, MCH 25.4 L, MCHC 28.9 L D, RDW Std Deviation 50.5 H, RDW Coeff of Jose F 15.7 H, Plt Count 145 L, MPV 12.1 H, Immature Gran % (Auto) 0.500, Neut % (Auto) 85.6 H, Lymph % (Auto) 8.3 L, [place] % (Auto) 5.4, Eos % (Auto) 0.0, Baso % (Auto) 0.2, Absolute Neuts (auto) 5.0, Absolute Lymphs (auto) 0.48 L, Nucleated RBC % 0, Diff Path Review February, Sodium 141, Potassium 4.2, Chloride 105, Carbon Dioxide 29.0, Anion Gap 7, BUN 32 H, Creatinine 0.95, Estim Creat Clear Calc 45.47, Est GFR (MDRD) Af Amer 75, Est GFR (MDRD) Non-Af 62, BUN/Creatinine Ratio 33.6 H, Glucose 162 H, Lactic Acid 2.5 H*, Calcium 8.2 L, Phosphorus 4.2, Magnesium 2.0, Total Bilirubin 1.00, AST 22, ALT 10 L, Alkaline Phosphatase 45, B-Natriuretic Peptide 823.5 H, Total Protein 5.5 L, Albumin 2.9 L, Globulin 2.6, Albumin/Globulin Ratio 1.1, TSH 1.500 Micro: Microbiology 06/27/24 21:50 Stool Stool Occult Blood (MENDEZ) - Final 06/27/24 20:18 Mucosa - Nose SARS-CoV-2, Influenza & RSV (PCR) - Final ABG Data ABG results: ABG 06/27/24 22:49 Specimen Type ART Sample Site R Radial pH 7.39 Bicarbonate Actual 31.2 H Total CO2 33 Base Excess 6 H O2 Saturation 88 L O2 % 5.0 ABG pCO2 51.6 H ABG pO2 56 L Mateus Test Positive O2 Delivery Device Cannula Vent Mode Not entered Rhythm Strip Rhythm Strip: Sinus Rhythm Rate: 80 Ectopy: None Imaging Radiology Impression Chest X-Ray 06/27/24 20:15 IMPRESSION: Diffuse density throughout the left lung with mild sparing of the apex. Findings consistent with atelectasis and/or infiltrate possibly with effusion. Recommend CT scan for better evaluation. Electronically Signed: Uziel Le MD at 21:19 EDT , Chest/Abdomen/Pelvis CT 06/27/24 21:45 IMPRESSION: 1. Exam limited by patient motion and the lack of IV and oral contrast. 2. Extensive abnormalities in the chest especially the left upper lobe where there is consolidation suggestive of atelectasis/infiltrate and likely neoplasm extending into the right mediastinum and hilum. Nodular densities throughout both lungs consistent with metastatic disease. 3. Small right pleural effusion. 4. Small to moderate left pleural effusion. 5. Diffuse calcified vascular disease. Electronically Signed: Uziel Le MD at 22:46 EDT , Chest X-Ray 06/28/24 05:55 IMPRESSION: Mixed atelectasis and consolidative pneumonia in the left lung with small effusion. CT follow-up recommended after treatment to exclude obstructing hilar lesion.. Electronically Signed: Salvatore Almeida MD at 6:33 EDT , Charges/Coding Visit Charges Inpatient E&M: 68144 Init Hosp L3 Procedures Hospitalists Procedures: 36897 Advncd Care Plan 30 Min
[2024-06-28] MEDS: Furosemide 40 MG/4 ML Vial IV (07:40)
--- NOTE | 2024-06-28 08:00 | PCM.PN.HOSP ---
Reason for Visit Reason for Visit: Diagnoses Sepsis, unspecified organism (06/27/24) Malignant neoplasm of unspecified part of unspecified bronchus or lung (06/27/24) Malignant neoplasm of unspecified part of left bronchus or lung (06/27/24) Anemia, unspecified (06/27/24) Acidosis, unspecified (06/27/24) Pneumonia, unspecified organism (06/27/24) Pleural effusion, not elsewhere classified (06/27/24) Acute respiratory failure, unspecified whether with hypoxia or hypercapnia (06/27/24) Other abnormalities of breathing (06/27/24) Edema, unspecified (06/27/24) Severe sepsis without septic shock (06/27/24) Personal history of transient ischemic attack (TIA), and cerebral infarction without residual deficits (06/27/24) Subjective Subjective Anxious, requiring dexmedetomidine gtt. Does like the bed. Objective Data Objective Data Vital Signs: Vital Signs Temp Pulse Resp BP Pulse Ox O2 Del Method O2 Flow Rate 36.3 C L 80 22 H 125/98 H 93 Nasal Cannula 6 06/28/24 06:58 06/28/24 07:07 06/28/24 07:07 06/28/24 06:58 06/28/24 07:07 06/28/24 07:07 06/28/24 07:07 Oxygen Flow Rate (L/min) 6 Oxygen Delivery Method Nasal Cannula Weight: 60.6 kg Body Mass Index (BMI) 26.1 Intake & Output: Intake and Output for Last 24 Hours 06/26/24 06/27/24 06/28/24 23:59 23:59 23:59 Intake Total 600 / 600 1351.59 / 1351.59 Output Total 0 / 0 Balance 600 / 600 1351.59 / 1351.59 Lab / Micro Data 06/28/24 11:15 06/28/24 04:50 Labs: Laboratory Results - last 24 hr 06/27/24 19:54: WBC 6.6, RBC 2.01 L, Hgb 4.9 L*, Hct 18.0 L, MCV 89.6, MCH 24.4 L, MCHC 27.2 L, RDW Std Deviation 52.3 H, RDW Coeff of Jose F 15.9 H, Plt Count 183, MPV 11.4, Immature Gran % (Auto) 0.500, Neut % (Auto) 76.7 H, Lymph % (Auto) 14.4 L, [place] % (Auto) 7.3, Eos % (Auto) 0.6, Baso % (Auto) 0.5, Absolute Neuts (auto) 5.1, Absolute Lymphs (auto) 0.95, Nucleated RBC % 0, Diff Path Review May foll, Platelet Estimate ADEQUATE, RBC Morphology N CHROM, Hypochromasia 1+, Anisocytosis RARE, Macrocytosis RARE, Ovalocytes RARE, Sodium 140, Potassium 4.6, Chloride 102, Carbon Dioxide 27.0, Anion Gap 11, BUN 30 H, Creatinine 1.04 H, Estim Creat Clear Calc 40.18, Est GFR (MDRD) Af Amer 67, Est GFR (MDRD) Non-Af 56 L, BUN/Creatinine Ratio 28.8 H, Glucose 215 H, Calcium 9.0, Iron 9 L, TIBC 343, Iron Saturation 2.6 L, Ferritin 13, Troponin I High Sens 106 H, B-Natriuretic Peptide 573.7 H, Folate 7.70 06/27/24 20:12: Lactic Acid 7.2 H* 06/27/24 21:05: Blood Type O POSITIVE, Antibody Screen NEGATIVE, Crossmatch See Detail 06/27/24 23:49: Lactic Acid 4.4 H* 06/28/24 01:35: Troponin I High Sens 118 H, Vitamin B12 443 06/28/24 02:20: D-Dimer Quant (PE/DVT) 1.84 H* 06/28/24 03:45: Troponin I High Sens 112 H 06/28/24 04:50: WBC 5.8, RBC 2.24 L, Hgb 5.7 L*, Hct 19.7 L, MCV 87.9, MCH 25.4 L, MCHC 28.9 L D, RDW Std Deviation 50.5 H, RDW Coeff of Jose F 15.7 H, Plt Count 145 L, MPV 12.1 H, Immature Gran % (Auto) 0.500, Neut % (Auto) 85.6 H, Lymph % (Auto) 8.3 L, [place] % (Auto) 5.4, Eos % (Auto) 0.0, Baso % (Auto) 0.2, Absolute Neuts (auto) 5.0, Absolute Lymphs (auto) 0.48 L, Nucleated RBC % 0, Diff Path Review February, Sodium 141, Potassium 4.2, Chloride 105, Carbon Dioxide 29.0, Anion Gap 7, BUN 32 H, Creatinine 0.95, Estim Creat Clear Calc 45.47, Est GFR (MDRD) Af Amer 75, Est GFR (MDRD) Non-Af 62, BUN/Creatinine Ratio 33.6 H, Glucose 162 H, Lactic Acid 2.5 H*, Calcium 8.2 L, Phosphorus 4.2, Magnesium 2.0, Total Bilirubin 1.00, AST 22, ALT 10 L, Alkaline Phosphatase 45, B-Natriuretic Peptide 823.5 H, Total Protein 5.5 L, Albumin 2.9 L, Globulin 2.6, Albumin/Globulin Ratio 1.1, TSH 1.500 Micro: Microbiology 06/27/24 21:50 Stool Stool Occult Blood (MENDEZ) - Final 06/27/24 20:18 Mucosa - Nose SARS-CoV-2, Influenza & RSV (PCR) - Final ABG Data ABG results: ABG 06/27/24 22:49 Specimen Type ART Sample Site R Radial pH 7.39 Bicarbonate Actual 31.2 H Total CO2 33 Base Excess 6 H O2 Saturation 88 L O2 % 5.0 ABG pCO2 51.6 H ABG pO2 56 L Mateus Test Positive O2 Delivery Device Cannula Vent Mode Not entered Radiography Diagnostic Testing: Radiology Impression Chest X-Ray 06/27/24 20:15 IMPRESSION: Diffuse density throughout the left lung with mild sparing of the apex. Findings consistent with atelectasis and/or infiltrate possibly with effusion. Recommend CT scan for better evaluation. Electronically Signed: Uziel Le MD at 21:19 EDT , Chest/Abdomen/Pelvis CT 06/27/24 21:45 IMPRESSION: 1. Exam limited by patient motion and the lack of IV and oral contrast. 2. Extensive abnormalities in the chest especially the left upper lobe where there is consolidation suggestive of atelectasis/infiltrate and likely neoplasm extending into the right mediastinum and hilum. Nodular densities throughout both lungs consistent with metastatic disease. 3. Small right pleural effusion. 4. Small to moderate left pleural effusion. 5. Diffuse calcified vascular disease. Electronically Signed: Uziel Le MD at 22:46 EDT , Chest X-Ray 06/28/24 05:55 IMPRESSION: Mixed atelectasis and consolidative pneumonia in the left lung with small effusion. CT follow-up recommended after treatment to exclude obstructing hilar lesion.. Electronically Signed: Salvatore Almeida MD at 6:33 EDT , Rhythm Strip Rhythm Strip: Sinus Rhythm Rate: 80 Ectopy: None Physical Exam Const Constitutional Narrative: anxious. HEENT head/scalp atraumatic and moist oral mucous membranes Resp normal respiratory effort and no retractions Resp Narrative: Left sided crackles. Cardio regular rate, regular rhythm, S1 normal heart sound and S2 normal heart sound GI normal to inspection, nondistended, normoactive bowel sounds, soft to palpation, non-tender and non-distended Extremity normal to inspection and full ROM Neuro Sensorium / Orientation: awake and alert Psych affect normal Assessment & Plan Assessment/Plan (1) Pneumonia: QUALIFIERS: Laterality: left Lung location: unspecified part of lung Pneumonia type: due to unspecified organism Qualified Code(s): J18.9 - Pneumonia, unspecified organism (2) Sepsis: QUALIFIERS: Acute respiratory failure type: unspecified Sepsis acute organ dysfunction status: with acute organ dysfunction Sepsis type: sepsis due to unspecified organism Severe sepsis acute organ dysfunction type: acute respiratory failure Severe sepsis shock status: without septic shock Qualified Code(s): A41.9 - Sepsis, unspecified organism; R65.20 - Severe sepsis without septic shock; J96.00 - Acute respiratory failure, unspecified whether with hypoxia or hypercapnia (3) Lactic acidosis: (4) Lung cancer: QUALIFIERS: Laterality: left Lung location: unspecified part of lung Qualified Code(s): C34.92 - Malignant neoplasm of unspecified part of left bronchus or lung (5) Respiratory insufficiency: (6) Edema: QUALIFIERS: Edema type: unspecified Qualified Code(s): R60.9 - Edema, unspecified (7) Anemia: QUALIFIERS: Anemia type: unspecified type Qualified Code(s): D64.9 - Anemia, unspecified PLAN: Plan Suspected Gram negative pneumonia In the context of a suspected pulmonary malignancy. Broad-spectrum antibiotics with pip-tazo and vancomycin. CT scan personally reviewed and showed prominently a left upper lobe infiltrate but also a left lower lobe more diffuse type infiltrate. COVID-19, influenza RSV negative. Strep and Legionella pending. Blood culture pending. Check sputum culture. Pep therapy CCM following Suspected acute on chronic blood loss anemia Initial hemoglobin down to 4.9 admission. No baseline labs available. Patient transfused 2 units of packed red blood cells and now up to 7.5 GI on consult Likely acute on chronic anemia as iron low at 9 and ferritin low at 13. B12, folate and TSH within normal limits. Will give IV iron. Aspirin and clopidogrel been held. CTA chest ordered. Possible neoplasm, pulmonary. Noted on CT scan of the chest abdomen pelvis where patient had suspected neoplasm in the right mediastinum and hilum. Nodular densities throughout both lungs consistent with metastatic disease. Additionally, she also has a small right pleural effusion. Pleural effusion is too small for thoracentesis at this time. Also small to moderate left pleural effusion, would also advise no thoracentesis at present. CCM on consult for further recommendations. Patient may require bronchoscopy at some point Pleural effusion Bilateral. May be exudative. Too small for thoracentesis. Elevated troponins suspect type II. Follow up echo. Anxiety complicates care on dexmedetomidine gtt. Chronic conditions History of CVA: with residual Left-sided weakness. Aspirin and clopidogrel hold given anemia. Essential hypertension -losartan on hold for now. Hyperlipidemia - VTE prophylaxis with SCDs. Chemical prophylaxis contraindicated given the anemia. Charges/Coding Visit Charges Inpatient E&M: 84757 [facility] Hosp L3
--- NOTE | 2024-06-28 08:08 | ECHOD_ITS ---
Reason For Study: dyspnea/SOB Procedure This was a 2D Doppler, Color Flow transthoracic echocardiogram. The study was technically difficult. PT unable to lie flat, mut be sitting upright. Exam performed portable in ICU/CCU. Left Ventricle Normal LV size. Moderate global left ventricular systolic dysfunction. The estimated ejection fraction is 35-40 %. Stage 2 diastolic dysfunction. Right Ventricle Normal RV size. Moderate global right ventricular systolic dysfunction. Atria The left atrium is mildly enlarged. Normal right atrium. Mitral Valve The mitral valve is structurally normal. No prolapse or stenosis seen. There is Mild focal posterior mitral annular calcification. Mild-Moderate (1-2+) mitral valve insufficiency. Tricuspid Valve Normal tricuspid valve. Mild to moderate (1-2+) tricuspid valve insufficiency. Pulmonary artery systolic pressure is 44 mmHg. Aortic Valve Trisinus/trileaflet aortic valve. Moderate focal aortic valve calcification. There is no aortic stenosis. Trivial aortic valve insufficiency. Pulmonic Valve Normal pulmonic valve. Great Vessels Normal aortic root. Pericardium/Pleural Trivial pericardial effusion. Left pleural effusion. MMode/2D Measurements & Calculations LVIDd: 4.6 cm IVSd: 1.1 cm Ao root diam: 2.6 cm LVIDs: 3.6 cm LVPWd: 1.00 cm RVDd: 3.7 cm FS: 21.0 % LAV(MOD-bp): 108.2 ml LVAd ap4: 30.0 cm2 LVAd ap2: 29.2 cm2 LAV(MOD-bp) Indexed: 68.9 ml/m2 LVLd ap4: 8.1 cm LVLd ap2: 8.4 cm LAV(MOD-sp2): 102.6 ml EDV(MOD-sp4): 91.1 ml EDV(MOD-sp2): 83.9 ml LAV(MOD-sp4): 109.4 ml EDV(sp4-el): 94.7 ml EDV(sp2-el): 86.3 ml LVAs ap4: 20.5 cm2 LVAs ap2: 20.0 cm2 LVLs ap4: 7.2 cm LVLs ap2: 7.6 cm ESV(MOD-sp4): 49.2 ml ESV(MOD-sp2): 45.5 ml ESV(sp4-el): 50.0 ml ESV(sp2-el): 44.6 ml EF(MOD-sp4): 46.0 % EF(MOD-sp2): 45.8 % EF(sp4-el): 47.2 % SV(MOD-sp4): 42.0 ml SV(MOD-sp2): 38.4 ml SV(sp4-el): 44.7 ml LA dimension(2D): 4.2 cm LA A4 area: 29.2 cm2 RA A4 area: 16.0 cm2 TAPSE: 1.7 cm Time Measurements MV dec time: 0.19 sec Doppler Measurements & Calculations MV E max justin: 129.7 cm/sec Lat Peak E' Justin: 5.2 cm/sec Med Peak E' Justin: 4.7 cm/sec MV A max justin: 98.9 cm/sec E/E' lat: 25.0 E/E' med: 27.9 MV E/A: 1.3 MV V2 max: 158.0 cm/sec MV P1/2t max justin: 141.0 cm/sec Ao V2 max: 76.2 cm/sec MV max P.0 mmHg MV P1/2t: 62.5 msec Ao max P.3 mmHg MV V2 mean: 79.0 cm/sec MV dec slope: 660.9 cm/sec2 Ao V2 mean: 52.2 cm/sec MV mean P.9 mmHg Ao mean P.2 mmHg MV V2 VTI: 42.0 cm MVA(P1/2t): 3.5 cm2 Ao V2 VTI: 19.2 cm AV (velocity ratio): 0.84 LV V1 max: 69.9 cm/sec MR max justin: 492.4 cm/sec PA V2 max: 76.6 cm/sec LV V1 max P.0 mmHg MR max P.0 mmHg PA V2 mean: 46.8 cm/sec LV V1 mean P.1 mmHg MR mean justin: 418.0 cm/sec PA V2 VTI: 14.0 cm LV V1 mean: 49.6 cm/sec MR mean P.2 mmHg LV V1 VTI: 16.0 cm MR VTI: 179.8 cm TR max justin: 318.5 cm/sec TR max P.6 mmHg ECHO/Echo Complete Interpretation Summary The estimated ejection fraction is 35-40 %. Stage 2 diastolic dysfunction. Moderate global right ventricular systolic dysfunction. The left atrium is mildly enlarged. There is Mild focal posterior mitral annular calcification. Mild-Moderate (1-2+) mitral valve insufficiency. Moderate focal aortic valve calcification. Ordering Physician: Edwardo Gonzalez Referring Physician: ROSALINDA PCP Performed By: Summer Monterroso, DORETHA, RVT
[2024-06-28] MEDS: Sodium Ferric Gluconat/Sucrose 250 MG in 0.9% Normal Saline (250mL Bag) 250 ML 135 MG IV (08:42)
[2024-06-28 09:20] LABS: Troponin-I HS 129 pg/mL (3.0-54.0)
[2024-06-28] MEDS: Pantoprazole Sodium 80 MG in 0.9% Normal Saline (100mL Bag) 80 ML 10 MG CONT INF ×2 (10:09→19:57)
[2024-06-28 11:35] LABS: Hematocrit 24.6 % (37-47); Hemoglobin 7.5 g/dL (12.0-15.0)
--- NOTE | 2024-06-28 12:15 | CASEMGMT ---
Addendum entered by Kamala Anderson 06/28/24 14:00: Daughter states pt receives [facility], but she has placed them on hold for now while pt is in the hospital. Original Note: RN?CM?EQUITIES TRADER?CM?to room to meet with patient for initial transition planning/care coordination?assessment.?RN?CM?introduced self and role at [facility].? Pt resting in bed w/some SOB noted, anxious & voicing frustration re: being in the hospital. and daughter @ bedside and the following information obtained from them. Care providers, pharmacy, and demographics verified/updated at this time. Strata 2 PCP: Vianca Holloway NP in [place]. Pt has 1st appt scheduled Jul 09 to get established as a new patient. Specialists: Pt saw a stitching machine operator in [place] in Feb, 2024, but family not able to remember name at this time. Preferred Pharmacy: Pt uses [facility] in [place]. Family would like [facility] @ dc, if able to dc home. Insurance: [facility] Prescription Benefit:?yes Living Will/HPOA:? states paperwork has been started but has not been notorized. Aware HCPOA/LW can be completed @ [facility] if pt chooses to complete. states they would like her to complete this @ [facility], if possible, once she is feeling better. OLE, Quynh, aware. LNOK: , Richard. One adult child/daughter: Marilou shah. Living Arrangements: Lives w/her in 2-story home w/2 steps to enter. FFSU. Pt was able to ambulate stairs well when she was @ her baseline and was indep w/ADL's and IADL's up until about a week ago. states pt has been so tired and no energy this past week, she has only been able to ambulate 3-4 ft at a time @ home. has been assisting her. states he just retired and would be able to stay w/pt 22/05, if needed once she returns home. Transportation:? Pt has not driven since CVA in December. provided transportation. DME: ?Pt has the following DME:?shower chair, RTS, grab bars, rollator, pulse ox, glucometer, O2 through [facility] [place] @ 6 L/M continuously. Call placed to [facility] and this was verified. Pt has concentrator and portable O2 tanks and family can bring in @ dc, if pt able to dc home. They are also working on getting POC. ?Family state no need for further DME at this time.? HHC/SNF: Hx [facility] in December after CVA, then dc'd home w/HHC afterwards. Family does not remember name of HHC agency. Family and pt prefer for pt to discharge home and would like the same HHC agency pt had previously, but do not remember the name of agency. They state they can try to locate the info. They were made aware a list can also be provided if desired. They state, if pt is too weak to discharge home and if SNF is needed, they would be receptive to that as well and made aware a list of SNF's can also be provided. They prefer something close to [place], if possible. Palliative Care: Broached topic of palliative care and info/hand-out provided. They state they will look over it. Made aware CM can f/u at a later time to inquire if they would like a referral. PLAN:??TBD by course of treatment and progress w/therapy, SNF vs Home w/HHC. PT/OT evals pending. Juan BSN?RN?CM
[2024-06-28] MEDS: Vancomycin IV 500 MG/100 ML BAG 100 MG IV (13:26)
--- NOTE | 2024-06-28 13:50 | CASEMGMT ---
Social Work- SW attempted to meet pt, who was meeting with housing counselor. SW remains available to follow. ROSY Torres
--- NOTE | 2024-06-28 13:53 | CASEMGMT ---
Discharge Planning A list of?SNF & HH providers including quality and resource use data and consistent with the patient's preferred geographic region, medical needs, and insurance network was created in [employer] Guide.? This list was provided to the RN CM. Genny Elizalde, Discharge Planning Asst.
[2024-06-28] MEDS: dexMEDEtomidine 400 MCG in 0.9% Normal Saline (100mL Bag) 96 ML 10.6 MCG CONT INF (14:02)
--- NOTE | 2024-06-28 14:58 | CASEMGMT ---
Social Work- SW met with pt, pt dtr, and pt spouse to introduced self and role. Pt dtr inquired about feeling like they have received conflicting messages about pt going home and also pt not having much time left. SW provided education on the time frame of life expectancy and the location not necessarily being exclusive to pt being home vs in a facility. SW provided support as family discussed pt being very sick and pt severe anxiety. SW introduced conversation pertaining to care plan. Pt daughter and spouse feel pt will prefer home with care whether it is HHC or hospice, depending on their meeting with Dr Friend, which they feel will give an idea of life expectancy. SW will remain available to follow. ROSY Torres
[2024-06-28 15:13] LABS: Pathologist Review Reviewed
[2024-06-28 15:14] LABS: Pathologist Review Reviewed
--- NOTE | 2024-06-28 15:41 | CHAPLAIN ---
Type of Pastoral Visit _x__ Initial Visit ___ Follow-up Visit ___ On-call Visit ___ General Patient Visit ___ Spiritual Assessment ___ Family Conference ___ Bereavement ___ Rapid Response ___ Code Blue ___ Other (describe below) Pastoral Care Referral From _x__ Patient ___ Family ___ Nurse ___ Physician ___ Agricultural Equipment Salesperson ___ Computer Game Designer ___ Other (describe below) Sacrament/Intervention _x__ Active listening ___ Anointing ___ Hinduism ___ Bereavement ___ Communion ___ Soheila exploration ___ ___ Life review _x__ Prayer ___ Reconciliation ___ Sacrament of Sick _x__ Supportive presence ___ Wedding ___ Other (describe below) Pastoral Comments patient is resting in bed but keeps her eyes closed and is very focused on her breathing; and daughter are in the room and are able to answer more questions; per RN and family members, the patient is anxious; the patient states there has just been one thing after the other; spouse agrees and gives more details; calming presence, assurances of care and support, asking how to meet needs of patient and family; daughter asks for prayer; pt is not of a soheila community but agrees that prayer would be nice;
[2024-06-28] MEDS: Albuterol 2.5 MG/3 ML VIAL.NEB. INHALATION (21:20)
[2024-06-28] MEDS: dexMEDEtomidine 400 MCG in 0.9% Normal Saline (100mL Bag) 96 ML 13.6 MCG CONT INF (23:49)
[2024-06-29] VITALS (15 sets, daily range): BP systolic 92–132; BP diastolic 45–81; PULSE 49–82; RESP 14–27; TEMP 35.8–36.6; O2SAT 88–100; BMI 26.3
[2024-06-29] MEDS: Vancomycin IV 500 MG/100 ML BAG 100 MG IV (00:37)
[2024-06-29] MEDS: Albuterol 2.5 MG/3 ML VIAL.NEB. INHALATION (00:42)
[2024-06-29 01:23] LABS: Internal QC Validated? YES +Cl - CLEAR BKGD; Pregnancy, Urine Negative Negative
[2024-06-29 01:37] LABS: Allen Test Positive; Base Excess 8 mmol/L (-2 to +2); Blood Gas Specimen Type ART; Comment AirVo 45L 50%; Mode Not entered; O2 Delivery Device CPAP; PO2 62 mmHG (75-100); SITE L Radial; SO2 88 % (95-99); Total Carbon Dioxide 36 mmol/L; pCO2 69.3 mmHg (35-45)
[2024-06-29] MEDS: LORazepam 2 MG/ML Syringe 1 MG IV (01:48)
[2024-06-29 04:40] LABS: Allen Test Positive; Base Excess 6 mmol/L (-2 to +2); Bicarbonate 33.4 mmol/L (22-26); Blood Gas Specimen Type ART; Comment AirVo 45L 65%; Mode Not entered; O2 Delivery Device CPAP; PO2 70 mmHG (75-100); SITE L Radial; SO2 90 % (95-99); Total Carbon Dioxide 36 mmol/L; pCO2 75.8 mmHg (35-45); pH 7.25 (7.35-7.45)
[2024-06-29] MEDS: Propofol 10MG/Ml 1,000 MG/100 ML Bottle 3.7 MG CONT INF (05:30)
--- NOTE | 2024-06-29 05:39 | NURSING ---
Pt unresponsive, bradycardic in the 40s, hypotensive and hypoxic. Precedex stopped and rapid response team called. Pt assessed and Dr. Morton made the decision to intubate. aware of situation and gave the okay to intubate. 0539: 5 mg propofol IV x1 given. RT bagging patient. SpO2 90%, HR 58, BP 91/71. 0541: Additional 5 mg propofol IV given. 0543: Intubated successfully with #7.0 ETT, 22 @ lip. Positive color change, BL breath sounds noted. 0547: OG placed.
--- NOTE | 2024-06-29 05:45 | RAD_ITS ---
EXAM: XR CHEST, 1 VIEW CLINICAL INDICATION: tube placement TECHNIQUE: Frontal view of the chest. COMPARISON: Single view chest and CTA chest from 06/28/2024. FINDINGS: LUNGS AND PLEURAL SPACES: Bilateral airspace disease/consolidations especially in the left upper lobe, with small pleural effusions. No pneumothorax. HEART: Unremarkable. Cardiac silhouette not enlarged. MEDIASTINUM: Central airways and mediastinal contour are unremarkable. BONES/JOINTS: Unremarkable. No acute fracture. SOFT TISSUES: Unremarkable. TUBES, LINES AND DEVICES: Endotracheal tube with tip 3.2 cm above the anali. An enteric tube extending below the level of the GE junction into the stomach. RAD/Chest 1 View (Portable) IMPRESSION: 1. Endotracheal tube with tip 3.2 cm above the anali. An enteric tube extending below the level of the GE junction into the stomach. 2. Bilateral airspace disease/consolidations especially in the left upper lobe, with small pleural effusions. Please see the recent CTA chest exam. Electronically Signed: Carmelo Valadez MD at 7:24 EDT ,
--- NOTE | 2024-06-29 06:27 | PN.HOSP_ITS ---
Hospitalist Note Rapid response was called overhead at approximately 5:30 AM. Patient had a period of unresponsiveness and bradycardia but quickly recovered consciousness spontaneously. Unfortunately, she was extremely anxious in spite of receiving Ativan on top of Precedex drip with patient insisting she wanted to get out of bed. Her was called and notified of a change in her condition with a pH of 7.25 / pCO2 75.8 /pO2 70/HCO3 33.4 on her ABG in spite of Airvo 65% (down from a pH 7.3 few hours earlier) so decision was made to intubate patient i mmediately as long as her did not object. She was then induced with propofol 5 mg IV once and then required a second 5 mg dose for full induction with patient then subsequently intubated on the second attempt with glide scope guidance. Chest x-ray shows ET tube is in good position and OG tube is below the diaphragm. Finally, her hemoglobin has risen to 7.5 g/dL (up from 4.9 g/dL present on admission) after transfusion of 2 units of PRBCs. PRIVATE WATCHMAN was updated with plan. RUN DATE: 06/29/24 [facility], DEPARTMENT OF LABORATORIES PAGE 1 RUN TIME: 628 Specimen Inquiry [id number] [facility], [place], [address] PATIENT: EILEEN TRAN V LOC: ICU U #: [id number] : 1955 AGE/SX: 68/F FACILITY: [facility] ROOM: [place] [address] RE06/27/[address]: Dr. London Redmond, DO STATUS:ADM IN ED: 1 DIS: ~ SPEC #: [id number] EDISON: 06/29/24 STATUS: COMP REQ #: [id number] RECD: 06/29/[address]: Dr. London Redmond, DO ENTERED: 06/29/[address] [facility] [address]: Dr. Carlos Morton, DO Care Physician,No Primary ~ Test Result Flag Adult Reference Range IBG Blood Gas Type ART SITE L Radial RADHA TEST Positive Mode Not entered O2 Delivery Dev CPAP FI02 65.0 Time Given 04:35:10 Results To Morton Read Back By Yes Comment AirVo 45L 65% pH 7.25 L 7.35-7.45 pCO2 75.8 *H 35-45 mmHg PO2 70 L 75-100 mmHG HCO3 33.4 H 22-26 mmol/L BE 6 H -2 to +2 mmol/L TOTAL CO2 36 mmol/L SO2 90 L 95-99 % END OF REPORT
[2024-06-29] MEDS: Ipratropium/Albuterol Sulfate 3 ML AMPUL.NEB INHALATION (07:04)
--- NOTE | 2024-06-29 07:14 | PCM.PRE.AN2 ---
ASA Classification* ASA Classification ASA Classification: 3 and E Assessment & Plan Anesthesia* Anesthesia Assessment Anesthesia Assessment: Discussed sedation and/or anesthesia options, risks, benefits, and alternatives with patient/parents/legal guardian/POA. Questions invited. The patient/parents/legal guardian/POA seems to understand and agrees to proceed with anesthesia plan. Reviewed the physical assessment, medical history, allergy history and patient home medications list prior to surgery/procedure/anesthetic and documented any changes. Performed airway and anesthesia risk assessments. Anesthesia Type Anesthesia Type: MAC History Source History Obtained from:: Patient and Chart Anesthesia Focused Assessment* Temperature: 97.9 F Pulse Rate: 56 Blood Pressure: 121/48 Respiratory Rate: 14 Pulse Ox: 100 Fraction of Inspired Oxygen (FIO2): 100 Airway Assessment Mouth opens: >3 cm Mallampati Score: III Neck Range of motion (ROM): Full ROM Pertinent Findings EKG Pertinent Findings:: NSR ECHO Pertinent Findings:: 35% EF, 1-2+ MR, TR Focused Labs Anesthesia Preop lab: CBC WBC 5.8 K/mm3 (4.4-11.0) 06/28/24 04:50 RBC 2.24 M/mm3 (4.2-5.4) L 06/28/24 04:50 Hgb 7.5 g/dL (12.0-15.0) L 06/28/24 11:15 Hct 24.6 % (37-47) L 06/28/24 11:15 Plt Count 145 K/mm3 (150-450) L 06/28/24 04:50 CHEMISTRY Potassium 4.2 mmol/L (3.5-5.1) 06/28/24 04:50 Sodium 141 mmol/L (136-145) 06/28/24 04:50 Magnesium 2.0 mg/dL (1.6-2.6) 06/28/24 04:50 Phosphorus 4.2 mg/dL (2.5-4.9) 06/28/24 04:50 BUN 32 mg/dL (7-18) H 06/28/24 04:50 Creatinine 0.95 mg/dL (0.55-1.02) 06/28/24 04:50 Glucose 162 mg/dL (74-106) H 06/28/24 04:50 TSH 1.500 uIU/mL (0.358-3.740) 06/28/24 04:50 COAG Urine Test Negative Negative 06/29/24 00:15 Pre-Assessment Diagnosis/Proposed Procedure Planned Operative Procedure(s): EGD Anesthesia History 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 When Was Last Pacemaker Check QUESTION #4 FULL TEXT: You/Your Family Experience fever (hyperthermia) with Anesthesia No Any additional information?: No Last Oral Intake Last Oral intake: Last Oral Intake NPO since Meds taken in AM with sips of water? 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 Female y HX of Motion Sickness HX of N/V After Surgery Non-Smoker y Duration of Surgery greater than 60 minutes Number of Risk Factors 2 PONV Score Height & Weight Height & Weight: Anesthesia: Height & Weight Height 5 ft 06/28/24 10:43 Weight: 61.1 kg 06/29/24 05:47 Body Mass Index (BMI) 26.3 06/29/24 05:47 Respiratory Assessment Respiratory Assessment - rod bending machine operator: Respiratory Tract Infection Hx - rod bending machine operator Hx Respiratory Tract Infection Any additional information?: No STOP Sleep Apnea STOP Sleep Apnea - rod bending machine operator: STOP Sleep Apnea - rod bending machine operator Hx Hypertension No 06/28/24 11:37 Hx Sleep Apnea No 06/27/24 23:59 CPAP BIPAP Do you snore loudly (louder No 06/27/24 23:59 than talking or can be heard Do you often feel tired/ No 06/27/24 23:59 fatigued/ sleepy during daytime? Has anyone observed you stop No 06/27/24 23:59 breathing during sleep? STOP Results Negative 06/27/24 23:59 QUESTION #5 FULL TEXT : Do you snore loudly (louder than talking or can be heard through closed doors)? 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 Specify any problems Hx of Preganancy in last 3 N/A 06/27/24 23:59 Months Nurse Filling Out Transfusion ASTOUDT 06/27/24 23:59 & Questions: Date: 06/28/24 06/27/24 23:59 Time: 00:38 06/27/24 23:59 Patient unable to answer at Yes 06/27/24 23:59 this time (ie. confused, unrespo Any additional information?: No /Reproduction History /Reproductive History - rod bending machine operator: /Reproductive Hx- rod bending machine operator Hx Now Gestational Age (in weeks): EDC: Hx Hx Para Hx Section SAB Any additional information?: No Active Medications Active Medications: Current Medications Generic Name Dose Route Start Last Admin Trade Name Freq PRN Reason Stop Dose Admin Albuterol Sulfate 2.5 mg 06/28/24 20:55 06/29/24 00:42 Albuterol 2.5 Mg/3 Ml Vial.Neb. INHALATION 2.5 mg Q2H PRN PRN Administration DYSPNEA Albuterol/Ipratropium 3 ml 06/28/24 02:00 06/29/24 07:04 Ipratropium/Albuterol Sulfate 3 Ml Ampul.Neb INHALATION 3 ml Q4HWA.RT ALANA Administration Vancomycin IV-PHARMACY TO DOSE 500 mls @ 250 mls/hr 06/27/24 23:59 1 each/ Sodium Chloride IV PRN PRN Rx to Dose Protocol Piperacillin Sod/Tazobactam 50 mls @ 12.5 mls/hr 06/28/24 06:00 06/29/24 01:49 Sod 3.375 gm/ Sodium Chloride IV Infused Q8 ALANA Infusion Sodium Chloride 250 mls @ 15 mls/hr 06/28/24 00:01 IV .[id number] PRN Additional IVPB Infusion Sodium Chloride 500 mls @ 15 mls/hr 06/28/24 00:01 IV PRN PRN Blood Transfusion Sodium Chloride 250 mls @ 15 mls/hr 06/28/24 00:01 IV .[id number] PRN Saline Flush Vancomycin HCl 500 mg in 100 mls @ 100 mls/hr 06/28/24 12:30 06/29/24 01:37 IV Infused Q12H ALANA Infusion Dexmedetomidine HCl 400 mcg/ 100 mls @ 7.575 mls/hr 06/28/24 08:15 06/29/24 05:15 Sodium Chloride CONT INF 0 mcg/kg/hr .[id number] ALANA 0 mls/hr Titration Protocol 0.5 MCG/KG/HR Pantoprazole Sodium 80 mg/ 100 mls @ 10 mls/hr 06/28/24 08:20 06/29/24 06:00 Sodium Chloride CONT INF Infused Q10H ALANA Infusion Propofol 1,000 mg in 100 mls @ 3.666 mls/hr 06/29/24 05:50 06/29/24 06:30 Diprivan CONT INF 25 mcg/kg/min .Q12H ALANA 9.2 mls/hr Titration Protocol 10 MCG/KG/MIN Fentanyl 100 mls @ 2.5 mls/hr 06/29/24 05:50 CONT INF UD ALANA Protocol 25 MCG/HR Ondansetron HCl 4 mg 06/27/24 23:59 Ondansetron 4 Mg/2 Ml Vial IV Q8H PRN PRN NAUSEA/VOMITING Sodium Chloride 10 - 40 ml 06/28/24 00:01 06/28/24 13:25 0.9% Saline Lock 10 Ml Syringe IV 30 ml UD PRN Administration SALINE FLUSH Vancomycin Protocol 1 lab 06/29/24 10:00 Vancomycin Trough/Random Due MC 06/29/24 14:00 DAILY ALANA PFSH Medical History Hx of bacterial pneumonia Hx of arterial ischemic stroke Home Medications ?Medication ?Instructions ?Recorded ?Last Taken ?Type ascorbic acid (vitamin C) 500 mg 500 mg PO QDAY 06/27/24 Unknown History chewable tablet (Acerola C) aspirin 81 mg capsule 81 mg PO DAILY 06/27/24 Unknown History atorvastatin 80 mg tablet 80 mg PO DAILY 06/27/24 Unknown History cholecalciferol (vitamin D3) 25 1,000 unit PO DAILY 06/27/24 Unknown History mcg (1,000 unit) tablet (Vitamin D3) clopidogrel 75 mg tablet 75 mg PO DAILY 06/27/24 Unknown History ferrous sulfate 325 mg (65 mg 325 mg PO DAILY 06/27/24 Unknown History iron) tablet losartan 25 mg tablet 25 mg PO DAILY 06/27/24 Unknown History magnesium 200 mg tablet 200 mg PO DAILY 06/27/24 Unknown History melatonin 10 mg capsule 10 mg PO QHS 06/27/24 Unknown History Allergy/AdvReac Type Severity Reaction Status Date / Time saccharin (From Sweeta) Allergy Mild PT UNSURE Verified 06/27/24 19:31 OF REACTION Family History no significant family his Surgical History Hx of chest tube placement Surgical History no surgical history Social History Smoking Status: Current some day smoker tobacco type: cigarettes Prior Cardiac Testing/Procedures Prior Cardiac Testing/Procedures: Echocardiogram (EF 35%, 1-2+ MR, TR) Review of Systems (Anesthesia) ROS Narrative System reviewed and no additional complaints, except as documented. Constitutional Constitutional: Denies chills or fever(s) Eyes Eyes: Denies change in vision or diplopia ENT HEENT: Denies rhinorrhea or sore throat Cardiovascular Cardiovascular: Reports leg edema; Denies chest pain or palpitations Respiratory/Chest Respiratory/Chest: Reports cough, dyspnea, dyspnea on exertion and other Details: Patient denies orthopnea saying she does not want to lay down because I do not like the mattress. Gastrointestinal Gastrointestinal: Reports constipation; Denies abdominal pain, diarrhea, nausea or vomiting Genitourinary Genitourinary: Denies dysuria or hematuria Musculoskeletal Musculoskeletal: Denies back pain or neck pain Integumentary Integumentary: Denies rash Neurologic Neurologic: Denies headache(s), paresthesias or weakness Psychiatric Psychiatric: Reports anxiety; Denies suicidal thoughts Physical Exam Const alert and oriented x3 Orientation / Consciousness: awake Neck full ROM General: normal visual inspection Cardio regular rate and regular rhythm Back/Spine normal ROM Extremity full ROM Neuro oriented x3 and moves all extremities
[2024-06-29] MEDS: fentaNYL drip 100 ML 5 MCG CONT INF (07:29)
--- NOTE | 2024-06-29 07:34 | PN.HOSP_ITS ---
Reason for Visit Reason for Visit: Diagnoses Sepsis, unspecified organism (06/27/24) Malignant neoplasm of unspecified part of unspecified bronchus or lung (06/27/24) Malignant neoplasm of unspecified part of left bronchus or lung (06/27/24) Anemia, unspecified (06/27/24) Acidosis, unspecified (06/27/24) Pneumonia, unspecified organism (06/27/24) Pleural effusion, not elsewhere classified (06/27/24) Acute respiratory failure, unspecified whether with hypoxia or hypercapnia (06/27/24) Other abnormalities of breathing (06/27/24) Edema, unspecified (06/27/24) Severe sepsis without septic shock (06/27/24) Other specified abnormal findings of blood chemistry (06/27/24) Personal history of transient ischemic attack (TIA), and cerebral infarction without residual deficits (06/27/24) Subjective Subjective Agitated overnight and required intubation. Objective Data Objective Data Vital Signs: Vital Signs Temp Pulse Resp BP Pulse Ox O2 Del Method O2 Flow Rate 36.6 C 56 L 14 121/48 H 100 Mechanical Ventilator 15 06/29/24 07:21 06/29/24 07:21 06/29/24 07:21 06/29/24 07:21 06/29/24 07:21 06/29/24 06:00 06/29/24 07:21 FiO2 100 06/29/24 07:21 Oxygen Flow Rate (L/min) 15 Oxygen Delivery Method Mechanical Ventilator Weight: 61.1 kg Body Mass Index (BMI) 26.3 Intake & Output: Intake and Output for Last 24 Hours 06/27/24 06/28/24 06/29/24 23:59 23:59 23:59 Intake Total 600 / 600 2566.59 / 2609.58 330.34 / 330.34 Output Total 200 / 400 600 / 600 Balance 600 / 600 2366.59 / 2209.58 -269.66 / -269.66 Lab / Micro Data 06/28/24 11:15 06/28/24 04:50 Labs: Laboratory Results - last 24 hr 06/27/24 19:54: Diff Path Review Reviewed 06/27/24 21:05: Crossmatch See Detail 06/28/24 04:50: Diff Path Review Reviewed 06/28/24 08:35: Troponin I High Sens 129 H* 06/28/24 11:15: Hgb 7.5 L, Hct 24.6 L 06/29/24 00:15: Urine Test Negative Micro: Microbiology 06/28/24 08:00 Urine, Random Legionella Antigen - Final 06/28/24 08:00 Urine, Random Streptococcus pneumoniae Antigen (M - Final 06/27/24 21:50 Stool Stool Occult Blood (MENDEZ) - Final 06/27/24 20:18 Mucosa - Nose SARS-CoV-2, Influenza & RSV (PCR) - Final ABG Data ABG results: ABG 06/29/24 06/29/24 01:33 04:33 Specimen Type ART ART Sample Site L Radial L Radial pH 7.30 L 7.25 L Bicarbonate Actual 34.0 H 33.4 H Total CO2 36 36 Base Excess 8 H 6 H O2 Saturation 88 L 90 L O2 % 50.0 65.0 ABG pCO2 69.3 H* 75.8 H* ABG pO2 62 L 70 L Mateus Test Positive Positive O2 Delivery Device CPAP CPAP Vent Mode Not entered Not entered Crit Call To/Read Back Yes Yes Blood Gas Notified Whom de Thomas de Thomas Blood Gas Notified Time 01:34:47 04:35:10 Clinical Comments AirVo 45L 50% AirVo 45L 65% Radiography Diagnostic Testing: Radiology Impression Chest CTA 06/28/24 06:54 IMPRESSION: Bilateral pleural effusions left greater than right with collapse of the left upper lobe. Soft tissue mass in the perihilar region on the left side. Bilateral pulmonary nodules. Patchy irregular nodular densities in the left lower lobe versus partial infiltrations. No evidence of pulmonary embolism. Electronically Signed: Eron Abbasi MD at 12:49 EDT Reading Location ID and State: [facility] / [place] , Service support , Echocardiogram 06/28/24 08:08 Interpretation Summary The estimated ejection fraction is 35-40 %. Stage 2 diastolic dysfunction. Moderate global right ventricular systolic dysfunction. The left atrium is mildly enlarged. There is Mild focal posterior mitral annular calcification. Mild-Moderate (1-2+) mitral valve insufficiency. Moderate focal aortic valve calcification. Ordering Physician: Edwardo Gonzalez Referring Physician: ROSALINDA PCP Performed By: Summer Monterroso, DORETHA, RVT Chest X-Ray 06/29/24 05:45 IMPRESSION: 1. Endotracheal tube with tip 3.2 cm above the anali. An enteric tube extending below the level of the GE junction into the stomach. 2. Bilateral airspace disease/consolidations especially in the left upper lobe, with small pleural effusions. Please see the recent CTA chest exam. Electronically Signed: Carmelo Valadez MD at 7:24 EDT , Rhythm Strip Rhythm Strip: Sinus Rhythm Rate: 80 Ectopy: None Physical Exam Const Constitutional Narrative: Intubated and sedated. HEENT head/scalp atraumatic and moist oral mucous membranes Resp Resp Narrative: Coarse breath sounds bilaterally Cardio regular rate and regular rhythm GI normal to inspection, nondistended, normoactive bowel sounds, non-distended and hepatosplenomegaly Assessment & Plan Assessment/Plan (1) Pneumonia: QUALIFIERS: Laterality: left Lung location: unspecified part of lung Pneumonia type: due to unspecified organism Qualified Code(s): J18.9 - Pneumonia, unspecified organism (2) Sepsis: QUALIFIERS: Acute respiratory failure type: unspecified Sepsis acute organ dysfunction status: with acute organ dysfunction Sepsis type: s epsis due to unspecified organism Severe sepsis acute organ dysfunction type: a cute respiratory failure Severe sepsis shock status: without septic shock Q ualified Code(s): A41.9 - Sepsis, unspecified organism; R65.20 - Severe sepsis without septic shock; J96.00 - Acute respiratory failure, unspecified whether with hypoxia or hypercapnia (3) Lactic acidosis: (4) Lung cancer: QUALIFIERS: Laterality: left Lung location: unspecified part of lung Qualified Code(s): C34.92 - Malignant neoplasm of unspecified part of left bronchus or lung (5) Respiratory insufficiency: (6) Edema: QUALIFIERS: Edema type: unspecified Qualified Code(s): R60.9 - Edema, unspecified (7) Anemia: QUALIFIERS: Anemia type: unspecified type Qualified Code(s): D 64.9 - Anemia, unspecified PLAN: Plan Acute hypoxic and hypercapnic respiratory failure * Multifactorial due to pneumonia, lung mass, pleural effusions * Required intubation earlier this a.m. on the . Now the patient is can proceed with comfort measures, patient will have a terminal extubation on same day. suspected Gram negative pneumonia * In the context of a suspected pulmonary malignancy. * Broad-spectrum antibiotics with pip-tazo and vancomycin. * CT scan personally reviewed and showed prominently a left upper lobe infiltrate but also a left lower lobe more diffuse type infiltrate. * COVID-19, influenza RSV negative. Strep and Legionella pending. Blood culture pending. Check sputum culture. * Pep therapy * CCM following * Family planning on hospice so antibiotics will be discontinued Suspected acute on chronic blood loss anemia * Initial hemoglobin down to 4.9 admission. No baseline labs available. Patient transfused 2 units of packed red blood cells and now up to 7.5 * GI on consult * Likely acute on chronic anemia as iron low at 9 and ferritin low at 13. B12, folate and TSH within normal limits. * Will give IV iron. Aspirin and clopidogrel been held. * Patient now hospice, no additional workup at this time. Possible neoplasm, pulmonary. * Noted on CT scan of the chest abdomen pelvis where patient had suspected neoplasm in the right mediastinum and hilum. Nodular densities throughout both lungs consistent with metastatic disease. Additionally, she also has a small right pleural effusion. Pleural effusion is too small for thoracentesis at this time. Also small to moderate left pleural effusion, would also advise no thoracentesis at present. * CCM on consult for further recommendations. Patient may require bronchoscopy at some point * Now that patient is hospice will not proceed with any additional workup at this time. Pleural effusion * Bilateral. May be exudative. Too small for thoracentesis. Elevated troponins * suspect type II. Follow up echo shows an EF of 40%. Patient is now hospice and will not proceed any additional workup. Anxiety * complicates care * on dexmedetomidine gtt. Chronic conditions * History of CVA: with residual Left-sided weakness. Aspirin and clopidogrel hold given anemia. * Essential hypertension -losartan on hold for now. * Hyperlipidemia - VTE prophylaxis with SCDs. Chemical prophylaxis contraindicated given the anemia. Advance care planning: Spent additional 46 minutes where I spoke with the patient's , daughter and friend (with the family's permission). Reiterated all the patient's issues, pneumonia, possible cancer, cardiomyopathy, blood clot, anemia. Explained that aggressive medical workup may not elicit any definitive positive outcome in the long run. They expressed, without my prompting, that the patient would not want this and would want her comfortable. I discussed hospice and making patient comfortable. They are all in agreement with that. Plan is to extubate the patient and make sure that she is very comfortable. I did mention to them that she may require more medication and then is traditionally used because of what she is already required but we will work assure that she is comfortable while she is here. They expressed understanding. Discussed with nursing as well as respiratory therapy about the terminal extubation. Charges/Coding Visit Charges Inpatient E&M: 30622 Subs Hosp L2 Procedures Hospitalists Procedures: [id number] Advncd Care Plan 30 Min (plus [id number])
[2024-06-29 08:03] LABS: Allen Test Positive; Base Excess 7 mmol/L (-2 to +2); Bicarbonate 32.3 mmol/L (22-26); Blood Gas Specimen Type ART; Mode AC; O2 Delivery Device Adult Vent; PEEP 5; PO2 74 mmHG (75-100); RR 14; SITE L Radial; SO2 93 % (95-99); Total Carbon Dioxide 34 mmol/L; pCO2 60.6 mmHg (35-45); pH 7.34 (7.35-7.45)
[2024-06-29] MEDS: morphine (oral solution) 10MG/0.5ML Syringe 10 MG SL/PO (09:40)
[2024-06-29] MEDS: LORazepam 2 MG/ML Bottle 1 MG SL (09:40)
--- NOTE | 2024-06-29 10:27 | CPS ---
terminally extubated to 2L NC
--- NOTE | 2024-06-29 12:37 | PN.CC_ITS ---
Objective Data Objective Data Vital Signs: Vital Signs Last response 3 Temperature 36.6 C 06/29/24 07:21 Temperature Source Temporal 06/29/24 06:00 Pulse Rate 56 L 06/29/24 07:21 Pulse Strength Weak (1+) 06/28/24 22:00 Respiratory Rate 14 06/29/24 07:21 Respiratory Effort Short of Breath, Labored, Accessory Muscle Use 06/29/24 04:00 Respiratory Depth Shallow 06/29/24 04:00 Respiratory Pattern Normal 06/29/24 06:00 Blood Pressure 121/48 H 06/29/24 07:21 Blood Pressure Mean 60 06/29/24 06:00 Blood Pressure Source Monitor 06/29/24 06:00 Blood Pressure Position Semi-Fowlers 06/29/24 06:00 Blood Pressure Location Left Arm 06/29/24 06:00 Pulse Ox 100 06/29/24 07:21 Oxygen Delivery Method Nasal Cannula 06/29/24 09:36 Oxygen Flow Rate (L/min) 2 06/29/24 09:36 Fraction of Inspired Oxygen (FIO2) 100 06/29/24 07:21 I&O: I&O Last 24 Hours 3 06/28/24 06/29/24 06/29/24 23:59 11:59 23:59 Intake Total 348.49 / 2609.58 374.68 / 374.68 Output Total 200 / 400 600 / 600 Balance 148.49 / 2209.58 -225.32 / -225.32 I&O: Total Stay 3 06/27/24 19:31 thru 06/29/24 09:14 Intake Total 3541.27 Output Total 800 Balance 2741.27 Current Meds Ordered / Administered: Current meds ordered / Administered 3 Generic Name Dose Route Start Last Admin Trade Name Freq PRN Reason Stop Dose Admin Acetaminophen 650 mg 06/29/24 08:48 Acetaminophen 650 Mg/20 Ml Udc PO Q4H PRN PRN Pain 1-10 or Fever Acetaminophen 650 mg 06/29/24 08:48 Acetaminophen 650 Mg Suppository RC Q4H PRN PRN Pain 1-10 or Fever Albuterol Sulfate 2.5 mg 06/28/24 20:55 06/29/24 00:42 Albuterol 2.5 Mg/3 Ml Vial.Neb. INHALATION 2.5 mg Q2H PRN PRN Administration DYSPNEA Albuterol/Ipratropium 3 ml 06/28/24 02:00 06/29/24 07:04 Ipratropium/Albuterol Sulfate 3 Ml Ampul.Neb INHALATION 3 ml Q4HWA.RT ALANA Administration Atropine Sulfate 4 drp 06/29/24 08:48 Atropine Sulfate 1% 2 Ml Bottle SL Q1H PRN PRN Secretions Glycerin/Hypromellose/Polyethylene 2 drp 06/29/24 08:48 Glycerin/Hypromellose/Abr420 15 Ml Bottle EACH EYE Q1H PRN DRY EYES Haloperidol Lactate 0.5 mg 06/29/24 08:48 Haloperidol Lactate 10 Mg/5 Ml Udc SL/PO Q3H PRN PRN NAUSEA/VOMITING Hyoscyamine Sulfate 0.125 mg 06/29/24 08:48 Hyoscyamine Sulfate 0.125 Mg Tablet SL/PO Q4H PRN PRN CONGESTION Sodium Chloride 250 mls @ 15 mls/hr 06/28/24 00:01 IV .[id number] PRN Additional IVPB Infusion Sodium Chloride 500 mls @ 15 mls/hr 06/28/24 00:01 IV PRN PRN Blood Transfusion Sodium Chloride 250 mls @ 15 mls/hr 06/28/24 00:01 IV .[id number] PRN Saline Flush Dexmedetomidine HCl 400 mcg/ 100 mls @ 7.575 mls/hr 06/28/24 08:15 06/29/24 09:09 Sodium Chloride CONT INF Infused .[id number] ALANA Titration Protocol 0.5 MCG/KG/HR Propofol 1,000 mg in 100 mls @ 3.666 mls/hr 06/29/24 05:50 06/29/24 09:12 Diprivan CONT INF Infused .Q12H ALANA Titration Protocol 10 MCG/KG/MIN Fentanyl 100 mls @ 2.5 mls/hr 06/29/24 05:50 06/29/24 09:14 CONT INF Infused UD ALANA Titration Protocol 25 MCG/HR Lorazepam 1 mg 06/29/24 08:48 06/29/24 09:40 Lorazepam 2 Mg/Ml Bottle SL 1 mg Q4H PRN PRN Administration ANXIETY/RESTLESSNESS/SLEEP Morphine Sulfate 10 mg 06/29/24 09:07 06/29/24 09:40 Morphine (Oral Solution) 10mg/0.5ml Syringe SL/PO 10 mg Q1H PRN PRN Administration dyspnea Ondansetron HCl 4 mg 06/27/24 23:59 Ondansetron 4 Mg/2 Ml Vial IV Q8H PRN PRN NAUSEA/VOMITING Sodium Chloride 10 - 40 ml 06/28/24 00:01 06/28/24 13:25 0.9% Saline Lock 10 Ml Syringe IV 30 ml UD PRN Administration SALINE FLUSH Lab / Micro Data 06/28/24 11:15 06/28/24 04:50 Labs: Laboratory Results - last 24 hr 06/27/24 19:54: Diff Path Review Reviewed 06/28/24 04:50: Diff Path Review Reviewed 06/29/24 00:15: Urine Test Negative Micro: Microbiology 06/28/24 08:00 Urine, Random Legionella Antigen - Final 06/28/24 08:00 Urine, Random Streptococcus pneumoniae Antigen (M - Final ABG Data ABG results: ABG 06/29/24 06/29/24 06/29/24 01:33 04:33 07:58 Specimen Type ART ART ART Sample Site L Radial L Radial L Radial pH 7.30 L 7.25 L 7.34 L Bicarbonate Actual 34.0 H 33.4 H 32.3 H Total CO2 36 36 34 Base Excess 8 H 6 H 7 H O2 Saturation 88 L 90 L 93 L O2 % 50.0 65.0 60.0 ABG pCO2 69.3 H* 75.8 H* 60.6 H ABG pO2 62 L 70 L 74 L Mateus Test Positive Positive Positive Respiration Rate 14 O2 Delivery Device CPAP CPAP Adult Vent Vent Mode Not entered Not entered AC Tidal Volume 400.0 POC PEEP 5 Crit Call To/Read Back Yes Yes Blood Gas Notified Whom de Thomas de Thomas Blood Gas Notified Time 01:34:47 04:35:10 Clinical Comments AirVo 45L 50% AirVo 45L 65% Rhythm Strip Rhythm Strip: Sinus Rhythm Rate: 80 Ectopy: None Imaging Radiology Impression Chest CTA 06/28/24 06:54 IMPRESSION: Bilateral pleural effusions left greater than right with collapse of the left upper lobe. Soft tissue mass in the perihilar region on the left side. Bilateral pulmonary nodules. Patchy irregular nodular densities in the left lower lobe versus partial infiltrations. No evidence of pulmonary embolism. Electronically Signed: Eron Abbasi MD at 12:49 EDT , Echocardiogram 06/28/24 08:08 Interpretation Summary The estimated ejection fraction is 35-40 %. Stage 2 diastolic dysfunction. Moderate global right ventricular systolic dysfunction. The left atrium is mildly enlarged. There is Mild focal posterior mitral annular calcification. Mild-Moderate (1-2+) mitral valve insufficiency. Moderate focal aortic valve calcification. Ordering Physician: Edwardo Gonzalez Referring Physician: ROSALINDA PCP Performed By: Summer Monterroso RDCS, RVT Chest X-Ray 06/29/24 05:45 IMPRESSION: 1. Endotracheal tube with tip 3.2 cm above the anali. An enteric tube extending below the level of the GE junction into the stomach. 2. Bilateral airspace disease/consolidations especially in the left upper lobe, with small pleural effusions. Please see the recent CTA chest exam. Electronically Signed: Carmelo Valadez MD at 7:24 EDT , Assessment and Plan . Assessment and plan: Critical Care Time: The entirety of this encounter was done via Telemedicine Subjective Subjective Chart and data reviewed Urgent O-T intubation early this am Subsequently, it was decided to pursue WLST/AND Patient has been terminally extubated and is currently moribund
--- NOTE | 2024-06-29 14:20 | PCM.DEATH ---
Preliminary Cause of Preliminary Cause of Preliminary Cause of : pneumonia Date of Admission: 06/27/24 Date of : 06/29/24 (1413) Principle Diagnosis Problem List: Active and Suspected Problems (Updated 06/28/24 @ 06:[address] Cralos Morton, DO) Pleural effusion (Acute) Respiratory insufficiency (Acute) Lung cancer (Acute) Lactic acidosis (Acute) Sepsis (Acute) Lung mass (Acute) Edema (Acute) Pneumonia (Acute) Elevated troponin (Acute) Anemia (Acute) Hypoxemia (Acute) Hospital Course This is a 68-year-old female whose had a breast progressive decline but presents with shortness of breath cough. Patient had a CAT scan that showed bilateral pneumonia with pleural effusions. Her hemoglobin is also noted to be 4.7 that was microcytic with a low iron and ferritin. Patient was also very anxious. For pneumonia, she was put on Vanco and pip-tazo. For the anemia, she was transfused 2 units of packed red blood cells and hemoglobin improved to 7.5. Patient was also having very severe anxiety and actually required a Precedex drip. The patient got worse on the morning of the and required intubation. Family was able to get together and they all agreed that the patient would not want this and wanted to proceed with hospice measures. I spoke with them extensively and patient was made DNR comfort care. We did a terminal extubation and made sure that she was comfortable. Patient on June 29 at 1413 with her family at bedside. Visit Charges Inpatient E&M: 94855 Disch Hosp >30min
== END 2024-06-29 17:10 | DRG 208 ==
LOC: ED 22:39 → ICU 23:03
PROVIDERS: Internal Medicine Gastroenterology; Admitting Provider Internal Medicine; Emergency Provider Emergency Medicine
DX: J15.69 Pneumonia due to other Gram-negative bacteria (principal); J96.01 Acute respiratory failure with hypoxia; I21.A1 Myocardial infarction type 2; J96.02 Acute respiratory failure with hypercapnia; C78.01 Secondary malignant neoplasm of right lung; I69.354 Hemiplegia and hemiparesis following cerebral infarction affecting left non-dominant side; J90 Pleural effusion, not elsewhere classified; C34.01 Malignant neoplasm of right main bronchus; C78.02 Secondary malignant neoplasm of left lung; D62 Acute posthemorrhagic anemia; C38.3 Malignant neoplasm of mediastinum, part unspecified; I10 Essential (primary) hypertension; E78.5 Hyperlipidemia, unspecified; F41.1 Generalized anxiety disorder; Z66 Do not resuscitate; Z99.81 Dependence on supplemental oxygen; Z79.02 Long term (current) use of antithrombotics/antiplatelets; Z79.82 Long term (current) use of aspirin; Z79.899 Other long term (current) drug therapy; Z87.891 Personal history of nicotine dependence
CPT/HCPCS: 31500; 31720; 36600; 71045; 71250; 71275; 74176; 80048; 80053; 81025; 82274; 82607; 82728; 82746; 82803; 83540; 83550; 83605; 83735; 83880; 84100; 84443; 84484; 85014; 85018; 85025; 85379; 86850; 86900; 86901; 86920; 86922; 87040; 87070; 87205; 87449; 87631; 93005; 93306; 93970; 94002; 94640; 94660; 94668; 94762; 99252; 99285; J7030; J7040; J7050; P9016; Q9967; A4216; G0463; J1940; J2916